=== PATIENT | male | born 1950 | race Caucasian/White ===

== ENCOUNTER 2020-04-01 09:01 | Outpatient (REF) | payer OTHER, SELFPAY | END 2020-04-01 09:02 | disposition home or self-care (01) | LOC: HO.LAB 09:01 | PROVIDERS: Visit Provider Internal Medicine | DX: Z20.828 Contact with and (suspected) exposure to other viral communicable diseases (principal) | CPT/HCPCS: C9803; U0003 ==

== ENCOUNTER 2020-06-12 09:47 | Emergency (ER) | payer OTHER, SELFPAY ==
--- NOTE | ~2020-06-12 | XR_ITS ---
EXAMINATION: XR CHEST CLINICAL INFORMATION: Chest pain COMPARISON: 01/29/2019 TECHNIQUE: 2 views of the chest were obtained. FINDINGS: Cardiac leads overlie the chest. The lungs are well expanded. Linear left basilar atelectasis. No consolidation, edema, or effusion. No pneumothorax. The cardiomediastinal silhouette is within normal limits of size, with a calcified aorta. Degenerative changes noted in the spine. XR/XR chest 2V IMPRESSION: Linear left basilar atelectasis. Otherwise clear lungs.
--- NOTE | ~2020-06-12 | CT_ITS ---
EXAMINATION: CT HEAD WITHOUT CONTRAST CLINICAL INFORMATION: Headache and dizziness COMPARISON: None TECHNIQUE: Contiguous axial imaging was performed from the skull base to vertex without intravenous administration of contrast. This CT examination was performed using dose optimization techniques as appropriate, variously including the following: *Automated exposure control *Adjustment of mA and/or kV according to patient size (this includes techniques or standardized protocols for targeted exams where dose is matched to indication/reason for exam; i.e. extremities or head) *Use of iterative reconstruction technique DLP: 748 mGy-cm FINDINGS: No evidence of acute intracranial hemorrhage or extra-axial fluid collection. No evidence of acute territorial infarction. No evidence of mass lesion, mass effect or midline shift. The ventricles are symmetric in configuration and normal in size. The basal cisterns are patent. The calvarium is intact. Limited views of the paranasal sinuses demonstrate mild mucoperiosteal thickening and small filling defect within the right maxillary sinus. Mastoid air cells are well aerated and middle ear cavities are clear. Views of the orbits are unremarkable. CT/CT head/brain wo con IMPRESSION: No acute intracranial pathology.
[2020-06-12 11:43] VITALS: BP 128/69; PULSE 74; RESP 18; TEMP 36.7; O2SAT 97; BMI 32.3
[2020-06-12 11:56] LABS: MANUAL DIFF FLAG NO
[2020-06-12 12:02] LABS: Basophils Absolute Auto 0.1 X10*3/uL (0.0-0.2); Basophils Percent Auto 0.4 % (0-2); Eosinophils Absolute Auto 0.2 X10*3/uL (0.0-0.4); Eosinophils Percent Auto 1.3 % (0-4); Hematocrit 40.5 % (42-52); Imm Gran Abs Auto 0.07 X10*3/uL (0.00-0.03); Imm Gran Pct Auto 0.6 % (0.0-0.4); Lymphocytes Absolute Auto 1.8 X10*3/uL (1.2-4.9); Mean Corpuscular HGB Conc 34.6 g/dl (31.0-36.0); Mean Corpuscular Hemoglobin 34.1 pg (27.0-33.0); Mean Corpuscular Volume 98.5 fL (80-98); Mean Platelet Volume 10.1 fL (9.4-12.4); Monocytes Absolute Auto 0.7 X10*3/uL (0.1-1.2); Neutrophils Absolute Auto 9.4 X10*3/uL (2.0-8.3); Neutrophils Percent Auto 76.7 % (45-73); Platelet Count 209 X10*3/uL (160-400); Red Blood Count 4.11 X10*6/uL (4.60-5.80); Red Cell Distribution Width 11.8 % (11.0-16.0); White Blood Count 12.2 X10*3/uL (4.8-10.8)
[2020-06-12 12:30] LABS: Anion Gap 14 (12-20); Blood Urea Nitrogen 21 mg/dL (9-16); Calcium 9.4 mg/dL (8.4-10.2); Carbon Dioxide 28 mmol/L (22-29); Chloride 100 mmol/L (96-108); Creatinine Clr Calc Pharmacy 70.3; Estimated Glomerular Filt Rate > 60; Glucose Random 108 mg/dL (60-115); Potassium 4.4 mmol/L (3.3-5.1); Sodium 138 mmol/L (135-145)
[2020-06-12 14:35] VITALS: BP 118/60; PULSE 76; RESP 18; TEMP 36.9; O2SAT 95
--- NOTE | 2020-06-12 14:54 | ECG_ITS ---
Test Reason : HEADACHE Blood Pressure : / mmHG Vent. Rate : 070 BPM Atrial Rate : 070 BPM P-R Int : 168 ms QRS Dur : 100 ms QT Int : 410 ms P-R-T Axes : 038 -15 038 degrees QTc Int : 442 ms Normal sinus rhythm Normal ECG When compared with ECG of 29-JAN-2019 14:28, No significant change was found Referred By: Maureen Puga Electronically Signed By:ELIZABETH BECKFORD MD
[2020-06-12] MEDS: Meclizine HCl 25 MG TABLET PO (15:02)
[2020-06-12] MEDS: Acetaminophen 325 MG TABLET 650 MG PO (15:02)
--- NOTE | 2020-06-12 15:10 | ED_ITS ---
HPI - Headache General Chief Complaint: Headache Stated Complaint: WEAKNESS Time Seen by Provider: 06/12/20 14:31 Source: patient Mode of arrival: ambulatory History of Present Illness HPI Narrative: 69-year-old male with a past medical history of arthritis, HTN, presenting to the ED complaining head pressure & dizziness described as feeling lightheaded/off balance since Tuesday. Admits symptoms have been constant since onset. Denies headache being maximal on onset. Also reports chest pain since last night and chronic SOB. Denies fever, visual change/loss, nausea/vomiting, abdominal pain, numbness/tingling, weakness, head trauma. Admits to similar symptoms in the past however resolved spontaneously MD elicited complaint: headache Related Data Previous Rx's Medication Instructions Recorded [id number] 1 cap PO Q4-6H PRN #14 cap 06/12/20 [Fioricet] meclizine 25 mg PO TID PRN #14 tab 06/12/20 Allergies Allergy/AdvReac Type Severity Reaction Status Date / Time No Known Allergies Allergy Unverified 12/20/19 17:41 [No Known Allergies*] Review of Systems Review of Systems: Constitutional: No Fever, No Chills, No Fatigue, No Malaise Eyes: No Eye Pain, No Vision Changes Cardiovascular: + Chest Pain, +Chronic SOB, No Dyspnea on Exertion, No Palpitations Respiratory: No Cough, No Dyspnea Gastrointestinal: No Nausea, No Vomiting, No Diarrhea, No Constipation, No Abdominal pain Musculoskeletal: No joint pain, No Myalgias, No Joint Swelling Skin: No Skin Lesions, No rash Neuro: No Weakness, No Numbness, No Paresthesias, No Loss of Consciousness, +lightheaded, + Dizziness, + Headache Yes all other systems are reviewed and are negative Neurologic: Denies Abnormal speech present [facility] Past Medical History Attestation statement: The following information was validated with the patient. Medical History (Updated 06/12/20 @ 19:19 by YULIYA Kerr) Arthritis FH: total knee replacement HTN (hypertension) Social History Social History Alcohol intake: current Alcohol intake frequency: a few times a week Smoking Status: Never smoker Use of substances other than those prescribed or required for medical reasons: No Advance Directives: Yes Advance Directives Information Provided: Yes Advance Directives on File: No Physical Exam Vital Signs: Vital Signs: Last Vital Signs Temp 98.6 F 03/11/21 18:22 Pulse 64 06/12/20 18:22 Resp 18 06/12/20 18:22 BP 122/62 06/12/20 18:22 Pulse Ox 94 06/12/20 18:22 Body Mass Index 32.3 Const: General: cooperative, healthy appearing, comfortable, no acute distress, well developed and alert Orientation/consciousness: patient oriented x3 Limitations: no limitations HENMT: Head: Yes normal to inspection and Yes atraumatic Ears: hearing grossly normal bilaterally General nose exam: Normal external nose present Face and sinus: Yes normal facial exam Mouth: Normal oral and palatal mucosa present Eyes: General: appearance normal, both eyes and all related structures Periorbital: periorbital findings normal Pupils: Equal, round and reactive pupils present EOM: EOMs intact bilaterally Direct Ophthalmoscopy: no photophobia Neck: Neck: Yes normal visual inspection and Yes no meningeal signs Resp: Effort & Inspection: normal respiratory effort Auscultation: clear to auscultation bilaterally, no rales, no rhonchi and no wheezes Cardio: Rate: regular rate Heart sounds: S1 normal heart sound present and S2 normal heart sound present GI: Inspection: Yes normal to inspection Palpation (GI): Soft to palpation, nontender, no guarding and not rigid Skin: Rashes: no rashes Wounds: no wounds Neuro: General: patient oriented x3, gait normal, tone normal, moves all extremities, no meningeal signs, no focal motor deficits and CN's II-XI intact bilaterally Cranial nerves: Yes Equal, round and reactive pupils present Cognition (Neuro): normal cognition Speech: No Abnormal speech present Gait exam (Neuro): Normal gait present and not ataxic Motor exam (neuro): 5/5 motor strength present throughout, Pronator motor function not present and no tremor noted Coordination: eesxye-zc-[id number] test normal and Romberg test negative Extrem: General: Yes normal to inspection and Yes no pedal edema NIH Stroke Scale Internal: Initial- Upon Arrival Level of Consciousness: Alert Level of Consciousness Questions: Answers both questions correctly Level of Consciousness Commands: Performs both tasks correctly Best Gaze: Normal Visual: No visual loss Facial Palsy: Normal Motor Arm (Right): No drift Motor Arm (Left): No drift Motor Leg (Right): No drift Motor Leg (Left): No drift Limb Ataxia: Absent Sensory: Normal Best Language: No aphasia Dysarthia: Normal Extinction and Inattention: No abnormality Score: 0 Course Course Course Narrative: -mild leukocytosis of 12.2, initial troponin 85.5. EKG without STEMI >> will obtain 3 hour repeat -1744--repeat troponin without 50% delta, [place] unlikely XR chest 2V IMPRESSION: Linear left basilar atelectasis. Otherwise clear lungs CT head/brain wo con IMPRESSION: No acute intracranial pathology -1849--on re-evaluation patient reports symptomatic improvement. Lab and imaging results discussed. Worrisome signs and symptoms/strict return precautions discussed. He verbalized understanding feel safe for discharge home MDM - Headache MDM Narrative Medical decision making narrative: 69-year-old male with a past medical history of arthritis, HTN, presenting to the ED complaining head pressure & dizziness described as feeling lightheaded/off balance since Tuesday. Also reports chest pain since last night and chronic SOB. On exam VSS, NAD, no focal neuro deficits, physical exam as above. Concern for complicated migraine headache. Low concern for posterior CVA/ICH or SAH Patient is out of the window for tPA and NIHSS =0, symptoms are not disabling Plan: EKG, Labs, Head CT, UA, IVF, Sx tx, Reassess Medical Records Attestation: I reviewed the patient's medical records. Lab Data Attestation: I reviewed the patient's lab results. Result diagrams: 06/12/20 11:52 06/12/20 11:52 Labs: Lab Results 06/12/20 06/12/20 06/12/20 Range/Units 11:52 11:52 11:52 WBC 12.2 H (4.8-10.8) X10*3/uL RBC 4.11 L (4.60-5.80) X10*6/uL Hgb 14.0 (14.0-18.0) g/dl Hct 40.5 L (42-52) % MCV 98.5 H (80-98) fL MCH 34.1 H (27.0-33.0) pg MCHC 34.6 (31.0-36.0) g/dl RDW 11.8 (11.0-16.0) % Plt Count 209 (160-400) X10*3/uL MPV 10.1 (9.4-12.4) fL Immature Gran % (Auto) 0.6 H (0.0-0.4) % Neut % (Auto) 76.7 H (45-73) % Lymph % (Auto) 15.0 L (20-40) % Stanton % (Auto) 6.0 (2-11) % Eos % (Auto) 1.3 (0-4) % Baso % (Auto) 0.4 (0-2) % Lymph # (Auto) 1.8 (1.2-4.9) X10*3/uL Stanton # (Auto) 0.7 (0.1-1.2) X10*3/uL Eos # (Auto) 0.2 (0.0-0.4) X10*3/uL Baso # (Auto) 0.1 (0.0-0.2) X10*3/uL Abs Immat Gran (auto) 0.07 H (0.00-0.03) X10*3/uL Absolute Neuts (auto) 9.4 H (2.0-8.3) X10*3/uL Absolute Nucleated RBC 0.000 (0.0-0.012) X10*3/uL Nucleated RBC % (auto) 0.0 (0.0-0.2) /100WBC Sodium 138 (135-145) mmol/L Potassium 4.4 (3.3-5.1) mmol/L Chloride 100 (96-108) mmol/L Carbon Dioxide 28 (22-29) mmol/L Anion Gap 14 (12-20) BUN 21 H (9-16) mg/dL Creatinine 1.06 (0.5-1.4) mg/dL Estim Creat Clear Calc 70.3 Estimated GFR > 60 Random Glucose 108 (60-115) mg/dL Calcium 9.4 (8.4-10.2) mg/dL Magnesium 2.0 (1.6-2.6) mg/dL Total Bilirubin 0.8 (0.0-1.0) mg/dL Direct Bilirubin 0.3 (0.0-0.5) mg/dL AST 114 H (5-37) U/L ALT 78 H (0-40) U/L Alkaline Phosphatase 102 (39-117) U/L Troponin I High Sens 85.5 H (<3.5-35.0) ng/L B-Natriuretic Peptide (<100) pg/mL Total Protein 8.0 (6.5-8.0) g/dL Albumin 4.6 (3.5-5.0) g/dL Urine Color Urine Appearance Urine pH (5.0-8.0) Ur Specific [place] (1.005-1.025) Urine Protein (NEG-TRACE) MG/DL Urine Glucose (UA) (NEG) MG/DL Urine Ketones (NEG) MG/DL Urine Blood (NEG) Urine Nitrite (NEG) Ur Leukocyte Esterase (NEG) 06/12/20 06/12/20 Range/Units 15:00 16:20 WBC (4.8-10.8) X10*3/uL RBC (4.60-5.80) X10*6/uL Hgb (14.0-18.0) g/dl Hct (42-52) % MCV (80-98) fL MCH (27.0-33.0) pg MCHC (31.0-36.0) g/dl RDW (11.0-16.0) % Plt Count (160-400) X10*3/uL MPV (9.4-12.4) fL Immature Gran % (Auto) (0.0-0.4) % Neut % (Auto) (45-73) % Lymph % (Auto) (20-40) % Stanton % (Auto) (2-11) % Eos % (Auto) (0-4) % Baso % (Auto) (0-2) % Lymph # (Auto) (1.2-4.9) X10*3/uL Stanton # (Auto) (0.1-1.2) X10*3/uL Eos # (Auto) (0.0-0.4) X10*3/uL Baso # (Auto) (0.0-0.2) X10*3/uL Abs Immat Gran (auto) (0.00-0.03) X10*3/uL Absolute Neuts (auto) (2.0-8.3) X10*3/uL Absolute Nucleated RBC (0.0-0.012) X10*3/uL Nucleated RBC % (auto) (0.0-0.2) /100WBC Sodium (135-145) mmol/L Potassium (3.3-5.1) mmol/L Chloride (96-108) mmol/L Carbon Dioxide (22-29) mmol/L Anion Gap (12-20) BUN (9-16) mg/dL Creatinine (0.5-1.4) mg/dL Estim Creat Clear Calc Estimated GFR Random Glucose (60-115) mg/dL Calcium (8.4-10.2) mg/dL Magnesium (1.6-2.6) mg/dL Total Bilirubin (0.0-1.0) mg/dL Direct Bilirubin (0.0-0.5) mg/dL AST (5-37) U/L ALT (0-40) U/L Alkaline Phosphatase (39-117) U/L Troponin I High Sens 85.9 H (<3.5-35.0) ng/L B-Natriuretic Peptide 25 (<100) pg/mL Total Protein (6.5-8.0) g/dL Albumin (3.5-5.0) g/dL Urine Color YELLOW Urine Appearance HAZY Urine pH 5.5 (5.0-8.0) Ur Specific [place] 1.020 (1.005-1.025) Urine Protein TRACE (NEG-TRACE) MG/DL Urine Glucose (UA) NEG (NEG) MG/DL Urine Ketones NEG (NEG) MG/DL Urine Blood NEG (NEG) Urine Nitrite NEG (NEG) Ur Leukocyte Esterase NEG (NEG) ECG Data Attestation: I personally reviewed and interpreted this ECG as follows: ECG interpretation date: 06/12/20 ECG interpretation time: 15:14 Interpretation: EKG normal sinus rhythm. If 70. QTC 442. No STEMI Discharge Plan Discharge Clinical Impression: Headache, Dizziness Patient Disposition: Home, Self-Care Instructions: Acute Headache (ED) Additional Instructions: Your blood work and imaging studies were reassuring today in the ED Meclizine helps with nausea and dizziness, take as needed Fioricet a headache medication, take as needed Be aware Fioricet has Tylenol mixed in, do not exceed 4 g in 1 day You need to follow-up with her doctor as well as neurology If her symptoms persist or worsen her headache becomes more constant or persistent develops nausea, vomiting, weakness, numbness, or tingling return to the ED Prescriptions: New meclizine 25 mg tablet 25 mg PO TID PRN (Reason: dizziness) Qty: 14 RF: 0 [id number]-[id number]-dohd [Fioricet] 50-300-40 mg capsule 1 cap PO Q4-6H PRN (Reason: headache) Qty: 14 RF: 0 Referrals: Curtis Muller MD [Primary Care Provider] - 2 days Bharti Lanier MD [Physician] - 1 week
[2020-06-12] MEDS: Metoclopramide HCl 10 MG/2 ML VIAL IVPUSH (15:11)
[2020-06-12] MEDS: 0.9 % Sodium Chloride 1,000 ML 999 ML IVCONT (15:14)
[2020-06-12 15:24] LABS: Glucose Urine UA NEG (NEG); Leukocyte Esterase Urine NEG (NEG); Nitrite Urine NEG (NEG); PH 5.5 (5.0-8.0); Urine Blood NEG (NEG); Urine Ketones NEG (NEG); Urine Protein TRACE MG/DL (NEG-TRACE)
[2020-06-12 15:25] LABS: Appearance Urine HAZY; Color Urine YELLOW
[2020-06-12 15:35] LABS: Alanine Aminotransferase 78 U/L (0-40); Albumin Level 4.6 g/dL (3.5-5.0); Alkaline Phosphatase 102 U/L (39-117); Aspartate Amino Transferase 114 U/L (5-37); Bilirubin Direct 0.3 mg/dL (0.0-0.5); Bilirubin Total 0.8 mg/dL (0.0-1.0)
[2020-06-12 15:55] LABS: Troponin-I High Sensitivity 85.5 ng/L (<3.5-35.0)
[2020-06-12 16:14] VITALS: BP 122/54; PULSE 72; RESP 18; TEMP 36.7; O2SAT 96
[2020-06-12 17:01] LABS: B Type Natriuretic Peptide 25 pg/mL (<100); Troponin-I High Sensitivity 85.9 ng/L (<3.5-35.0)
[2020-06-12 17:16] VITALS: BP 132/58; PULSE 65; RESP 16; TEMP 36.5; O2SAT 94
[2020-06-12 18:22] VITALS: BP 122/62; PULSE 64; RESP 18; TEMP 37; O2SAT 94
[2020-06-12] MEDS: diphenhydrAMINE HCL 25 MG TABLET 12.5 MG PO (18:24)
[2020-06-12] MEDS: Butalb/Acetamin/Caff 50/325/40 TABLET 1 TAB PO (18:24)
== END 2020-06-12 19:47 | disposition home or self-care (01) ==
PROVIDERS: Physician Assistant; Emergency Provider Emergency Medicine; PCP Internal Medicine
DX: R42 Dizziness and giddiness (principal); R51.9 Headache, unspecified; I10 Essential (primary) hypertension
CPT/HCPCS: 36415; 70450; 71046; 80048; 80076; 81003; 83735; 83880; 84484; 85025; 93005; 96361; 96374; 99284; J2765; Q0163

== ENCOUNTER 2024-08-03 08:29 | Inpatient (IN) | payer OTHER, SELFPAY ==
[2024-08-03] VITALS (10 sets, daily range): BP systolic 128–157; BP diastolic 52–67; PULSE 56–79; RESP 15–28; TEMP 36.1–36.8; O2SAT 84–96; BMI 34.9; BMI 34.6
--- NOTE | ~2024-08-03 | XR_ITS ---
EXAMINATION: XR CHEST CLINICAL INFORMATION: SOB COMPARISON: 06/12/2020, 01/19/2019 TECHNIQUE: 2 views of the chest were obtained. FINDINGS: Cardiac silhouette is prominent and mildly enlarged. Mediastinal and hilar contours appear normal. Mild haziness of the interstitium, with blunting of the costophrenic sulci suggesting small effusions. Findings suggest mild interstitial pulmonary edema. Chronic scarring in the left base. No focal pneumonia evident. There is no pneumothorax. There is no focal osseous or soft tissue abnormality. There are degenerative changes throughout the spine. XR/XR chest 2V IMPRESSION: Cardiomegaly, and findings suggesting mild interstitial pulmonary edema with tiny pleural effusions. Chronic scarring in the left base. Electronically signed by: Niall Smart MD 08/03/2024 09:41 AM EDT
--- NOTE | 2024-08-03 08:48 | ED_ITS ---
HPI - General Adult General Chief complaint: Dyspnea Stated complaint: Difficulty breathing Time Seen by Provider: 08/03/24 09:11 Source: patient and family (patient's daughter) Mode of arrival: ambulatory Limitations: no limitations History of Present Illness ED Provider: Candy Cody PA-C HPI narrative: Patient is a 73 year old assigned male at with a history of COPD, KAYLEEN on CPAP at night, arthritis, and HTN presenting to the emergency department today with increased shortness of breath. Patient states that over the last 2 weeks he has had increased shortness of breath. Patient states that he is unable to lay down at night because he is unable to breathe - even with wearing his CPAP mask. Patient states that his chest has felt heavy. Patient denies any dizziness, lightheadedness, abdominal pain, nausea, vomiting, fever, chills, blurry vision, double vision, loss of vision, back pain, night sweats, pain with urination, increased urinary frequency, increased urinary urgency, blood in his urine or stool, syncope or a near syncopal episode, recent trauma or falls, bowel incontinence, bladder incontinence, or any other complaints at this time. Onset (ago): week(s) (2) Relieving factors: none Exacerbating factors: none Associated symptoms: chest pain (heaviness) and shortness of breath Treatments prior to arrival: none Related Data Previous Rx's ?Medication ?Instructions ?Recorded gtbrjubjfx-gteebhsgsonpg-ulfmjlio 1 cap PO Q4-6H PRN headache #14 06/12/20 50 mg-300 mg-40 mg capsule caps (Fioricet) meclizine 25 mg tablet 25 mg PO TID PRN dizziness #14 tabs 06/12/20 Allergies Allergy/AdvReac Type Severity Reaction Status Date / Time No Known Allergies Allergy Unverified 08/03/24 08:49 [No Known Allergies*] Review of Systems 2 Constitutional: Constitutional: Reports no additional constitutional complaints, Denies chills, Denies fever(s) and Denies night sweats Eyes: Eyes: Reports no additional eye complaints, Denies blurry vision, Denies change in vision, Denies diplopia, Denies eye discharge, Denies loss of vision and Denies eye pain ENT: Denies dizziness Cardiovascular: Cardiovascular: Reports no additional cardiovascular complaints, Reports chest pain (heaviness), Denies lightheadedness, Denies Loss of Consciousness and Reports dyspnea Respiratory: Respiratory: Reports no additional respiratory complaints and Reports dyspnea Gastrointestinal: Gastrointestinal: Reports no additional gastrointestinal complaints, Denies abdominal pain, Denies melena, Denies hematochezia, Denies change in bowel habits and Denies change in stool character Genitourinary: Genitourinary: Reports no additional male genitourinary complaints, Denies hematuria, Denies oliguria, Denies difficulty urinating, Denies dysuria, Denies urinary frequency, Denies urinary hesitancy, Denies urinary incontinence and Denies urinary urgency Musculoskeletal: Musculoskeletal: Reports no additional musculoskeletal complaints, Denies numbness and Denies tingling Neurologic: Denies dizziness, Denies loss of vision, Denies numbness and Denies tingling Psychiatric: Psychiatric: Reports no additional psychiatric complaints Endocrine: Endocrine: Reports no additional endocrine complaints Hematologic/Lymphatic: Hematologic/Lymphatic: Reports no additional hematologic/lymphatic complaints Allergic/Immunologic: Allergic/Immunologic: Reports no additional allergic/immunologic complaints PMFSH Past Medical History Attestation statement: The following information was validated with the patient. (patient's daughter validated all information.) Source: old records reviewed, obtained from family (patient's daughter provided additional history and confirmed the history provided by the patient. ) and nursing notes reviewed Medical History FH: total knee replacement Arthritis HTN (hypertension) Social History Social History Alcohol intake: unknown Smoked in Last 30 Days: No Use of substances other than those prescribed or required for medical reasons: No Advance Directives: No Advance Directives Information Provided: Yes Do you have a plan to hurt others: No Plan Physical Exam ED Vital Signs: Vital Signs - 24 hr 08/03/24 08:49 08/03/24 09:46 08/03/24 09:46 Temperature 97 F 97 F Pulse Rate 77 56 Respiratory Rate 20 26 H Blood Pressure 128/52 L 128/52 L Pulse Oximetry 91 L 84 L 95 Oxygen Delivery Method Room Air Room Air Room Air Oxygen Flow Rate 2 08/03/24 09:52 08/03/24 10:19 Temperature 97.2 F Pulse Rate 64 Respiratory Rate 15 Blood Pressure 131/58 L 138/67 Pulse Oximetry 95 Oxygen Delivery Method Nasal Cannula Oxygen Flow Rate 2 BMI result Body Mass Index 34.9 Const General: cooperative, no acute distress, alert and awake Nutritional Appearance: well nourished Orientation/consciousness: patient oriented x3 HENMT Head: Yes normal to inspection and Yes atraumatic Ears: hearing grossly normal bilaterally and external ears normal General nose exam: Normal external nose present, no nasal discharge noted and no epistaxis Face and sinus: Yes normal facial exam, No abrasion and No laceration Mouth: Normal oral and palatal mucosa present, no drooling and no muffled voice Eyes General: appearance normal, both eyes and all related structures Periorbital: periorbital findings normal Eyelids: Yes eyelids normal Conjunctivae: conjunctivae normal Pupils: Equal, round and reactive pupils present EOM: EOMs intact bilaterally Neck Neck: Yes normal visual inspection, Yes full ROM and Yes no lymphadenopathy Resp Effort & Inspection: able to speak in complete sentences and labored Auscultation: crackles bilateral in the lower lung rueda Neuro General: patient oriented x3, moves all extremities and CN's II-XI intact bilaterally Cranial nerves: Yes Equal, round and reactive pupils present Cognition (Neuro): normal cognition Extrem Other: bilateral lower extremity edema 2+ General: Yes full ROM and Yes capillary refill normal Psych Appearance: grossly normal Mental Status: mental status grossly normal Affect: normal affect Attitude: cooperative Thought process: Normal thought process present Thought content: Normal thought content present Insight: Good insight present (Psych) Course Course Course Narrative: RME performed by Candy Cody PA-C. Patient is a 73 year old assigned male at presenting to the emergency department with shortness of breath. Patient states a week ago he began to feel like he was short of breath and it has been getting worse. Detailed physical exam and review of systems are deferred to the assistant teacher. EKG, labs, imaging, and swabs ordered. Patient placed back in the waiting room pending room availability and results. Medications Administered Discontinued Medications Generic Name Dose Route Start Last Admin Trade Name [employer] PRN Reason Stop Dose Admin Furosemide 20 mg 08/03/24 09:46 08/03/24 09:52 Furosemide 20 Mg/2 Ml Vial IVPUSH 08/03/24 09:47 20 mg ONCE ONE Administration Protocol Methylprednisolone Sodium Succinate 60 mg 08/03/24 09:45 08/03/24 09:52 Methylprednisolone Sod Succ 125 Mg/2 Ml Vial IVPUSH 08/03/24 09:46 60 mg ONCE ONE Administration Medical Decision Making Medical Decision Making [facility] Narrative: Patient is a 73 year old assigned male at with a history of COPD, KAYLEEN on CPAP at night, arthritis, and HTN presenting to the emergency department today with increased shortness of breath. Patient's physical exam was as noted in the physical exam portion of this note. Bilateral crackles in the lung bases and bilateral lower extremity 2+ pitting edema present. Patient's blood work showed an elevated BNP of 236 and an initial troponin of 164. Patient's EKG showed new atrial flutter. Patient's chest x-ray showed cardiomegaly with pulmonary edema and tiny pleural effusions. I consulted with Dr. Hawk, the hospital manager sales consultant, who recommended admission and diuresis. Patient's clinical presentation is most consistent with new CHF in exacerbation with comorbid COPD. Patient was given 20 mg of IV lasix and 60 mg of IV solu-medrol. Patient did have an episode where his oxygen saturation dipped to 86% - at that time he was sat up further and started on 2 liters of oxygen via nasal cannula. Patient's saturation improved to the mid 90s where it remained. I spoke with the hospitalist team who agreed to admission. I explained my physical exam findings as well as all test results to the patient and the patient's daughter. I answered all questions asked by the patient and the patient's daughter. Patient and the patient's daughter verbalized agreement and understanding with this treatment plan and admission. Differential Diagnosis Differential Diagnoses: The differential diagnosis associated with the presentation includes CHF CHF exacerbation COPD exacerbation NSTEMI STEMI Admission/Observation Consideration of admission/observation: Escalation of care including admission/observation considered Patient admitted as noted in the MDM Rationale portion of this note. Consult Healthcare Provider Management of the patient was discussed with: Hospitalist (agreed to admission as noted in the MDM Rationale portion of this note. ) and Chief Orthoptist (spoke with Dr. Hawk the hospital manager as noted in the MDM Rationale portion of this note. ) Lab Data [facility] Lab Attestation statement: I reviewed the patient's lab results. My interpretation of these results are in the MDM Rationale portion of this note. 08/03/24 09:17 08/03/24 09:17 Labs: Lab Results 08/03/24 08/03/24 08/03/24 Range/Units 09:17 09:18 09:22 WBC 8.5 (4.8-10.8) X10*3/uL RBC 3.91 L (4.60-5.80) X10*6/uL Hgb 12.6 L (14.0-18.0) g/dl Hct 38.9 L (42.0-52.0) % MCV 99.5 H (80.0-98.0) fL MCH 32.2 (27.0-33.0) pg MCHC 32.4 (31.0-36.0) g/dl RDW 12.6 (11.0-16.0) % Plt Count 143 L (160-400) X10*3/uL MPV 10.4 (9.4-12.4) fL Immature Gran % (Auto) 0.5 H (0.0-0.4) % Neut % (Auto) 75.3 H (45-73) % Lymph % (Auto) 14.3 L (20-40) % Ogle % (Auto) 7.3 (2-11) % Eos % (Auto) 1.8 (0-4) % Baso % (Auto) 0.8 (0-2) % Lymph # (Auto) 1.2 (1.2-4.9) X10*3/uL Ogle # (Auto) 0.6 (0.1-1.2) X10*3/uL Eos # (Auto) 0.2 (0.0-0.4) X10*3/uL Baso # (Auto) 0.1 (0.0-0.2) X10*3/uL Abs Immat Gran (auto) 0.04 H (0.00-0.03) X10*3/uL Absolute Neuts (auto) 6.4 (2.0-8.3) x10*3/uL Absolute Nucleated RBC 0.000 (0.0-0.012) X10*3/uL Nucleated RBC % (auto) 0.0 (0.0-0.2) /100WBC PT 14.6 H (10.9-12.4) SEC INR 1.3 H (0.9-1.1) VBG pH 7.37 (7.32-7.43) VBG pCO2 55 mmHg VBG pO2 77 mmHg VBG HCO3 32 H (22-26) mmol/L VBG O2 Saturation 94.0 % VBG Base Excess 5.6 mmol/L Sodium 140 (135-145) mmol/L Potassium 3.6 (3.3-5.1) mmol/L Chloride 103 (96-108) mmol/L Carbon Dioxide 28 (22-29) mmol/L Anion Gap 13 (12-20) BUN 18 H (9-16) mg/dL Creatinine 0.79 (0.5-1.4) mg/dL Estim Creat Clear Calc 92.7 Estimated GFR > 60 Random Glucose 136 H (60-115) mg/dL Calcium 9.3 (8.4-10.2) mg/dL Magnesium 2.3 (1.6-2.6) mg/dL Total Bilirubin 0.5 (0.0-1.0) mg/dL AST 40 H (5-37) U/L ALT 46 H (0-40) U/L Alkaline Phosphatase 63 (39-117) U/L Troponin I Hi Sens Base 164.0 H* (<3.5-35.0) ng/L B-Natriuretic Peptide 236 H (<100) pg/mL Total Protein 7.1 (6.5-8.0) g/dL Albumin 4.2 (3.5-5.0) g/dL Influenza Type A (PCR) NEGATIVE (Negative) Influenza Type B (PCR) NEGATIVE (Negative) RSV RNA Qual (PCR) NEGATIVE (Negative) SARS-CoV-2 RNA (RT-PCR) NEGATIVE (Negative) Independent Interpretation I performed an independent interpretation of an: EKG and Plain X-Ray Interpretation: My interpretation is in agreement with the radiologist's impression of this imaging study. L EXAMINATION: XR CHEST CLINICAL INFORMATION: SOB COMPARISON: 06/12/2020, 01/19/2019 TECHNIQUE: 2 views of the chest were obtained. FINDINGS: Cardiac silhouette is prominent and mildly enlarged. Mediastinal and hilar contours appear normal. Mild haziness of the interstitium, with blunting of the costophrenic sulci suggesting small effusions. Findings suggest mild interstitial pulmonary edema. Chronic scarring in the left base. No focal pneumonia evident. There is no pneumothorax. There is no focal osseous or soft tissue abnormality. There are degenerative changes throughout the spine. XR/XR chest 2V IMPRESSION: Cardiomegaly, and findings suggesting mild interstitial pulmonary edema with tiny pleural effusions. Chronic scarring in the left base. Electronically signed by: Niall Smart MD 08/03/2024 09:41 AM EDT RP Dictated By: Niall Smart MD Signed By: Electronically signed by Niall Smart MD 08/03/24 0941 I independently interpreted this EKG and am in agreement with the below findings: Vent. Rate: 59 BPM Atrial Rate: 258 BPM P-R Int: * ms QRS Dur: 92 ms QT Int: 418 ms P-R-T Axes: 270 -33 19 degrees QTcB Int: 413 ms Atrial flutter with variable A-V block Left axis deviation Inferior infarct, age undetermined When compared with ECG of 12-Jun-2020 15:14, Atrial flutter has replaced Sinus rhythm Inferior infarct is now Present DD/ 09 Radiology Impression Discussion of test interpretation with radiology: I have reviewed the radiologist's reading. Independent Historian Clinical information obtained from an independent historian. History obtained from or confirmed by: Other (patient's daughter provided additional history and confirmed the history provided by the patient. ) Chronic Conditions Patient?s care impacted by: Hypertension Critical Care Time Critical Care Time Critical Care Time: Yes Total Critical Care Time: 48 Attestation: I spent 48 minutes of Critical Care Time with this patient. This does not include time spent on separately reported billable procedures. Discharge Plan Discharge Clinical Impression: Congestive heart failure, COPD (chronic obstructive pulmonary disease), Elevated troponin, Hypoxia, Atrial flutter Patient Disposition: Admitted As Inpatient Prescriptions: No Action meclizine 25 mg tablet 25 mg PO TID PRN (Reason: dizziness) Qty: 14 0RF nalrrimwkd-zwoqqjvkjrvhc-ittv [Fioricet] 50-300-40 mg capsule 1 cap PO Q4-6H PRN (Reason: headache) Qty: 14 0RF Rx Instructions: do not exceed 6 caps per day Print Language: Japanese
--- NOTE | 2024-08-03 08:51 | ECG_ITS ---
Test Reason : SOB Blood Pressure : */* mmHG Vent. Rate : 59 BPM Atrial Rate : 258 BPM P-R Int : * ms QRS Dur : 92 ms QT Int : 418 ms P-R-T Axes : 270 -33 19 degrees QTcB Int : 413 ms Atrial flutter with variable A-V block Left axis deviation Inferior infarct , age undetermined Abnormal ECG When compared with ECG of 12-Jun-2020 15:14, Atrial flutter has replaced Sinus rhythm Inferior infarct is now Present Referred By: Candy Cody Electronically Signed By: Chang Hawk
[2024-08-03 09:23] LABS: MANUAL DIFF FLAG NO
[2024-08-03 09:25] LABS: Basophils Absolute Auto 0.1 X10*3/uL (0.0-0.2); Basophils Percent Auto 0.8 % (0-2); Eosinophils Absolute Auto 0.2 X10*3/uL (0.0-0.4); Eosinophils Percent Auto 1.8 % (0-4); Hematocrit 38.9 % (42.0-52.0); Hemoglobin 12.6 g/dl (14.0-18.0); Imm Gran Abs Auto 0.04 X10*3/uL (0.00-0.03); Imm Gran Pct Auto 0.5 % (0.0-0.4); Lymphocytes Absolute Auto 1.2 X10*3/uL (1.2-4.9); Lymphocytes Percent Auto 14.3 % (20-40); Mean Corpuscular HGB Conc 32.4 g/dl (31.0-36.0); Mean Corpuscular Hemoglobin 32.2 pg (27.0-33.0); Mean Corpuscular Volume 99.5 fL (80.0-98.0); Mean Platelet Volume 10.4 fL (9.4-12.4); Monocytes Absolute Auto 0.6 X10*3/uL (0.1-1.2); Monocytes Percent Auto 7.3 % (2-11); Neutrophils Absolute Auto 6.4 x10*3/uL (2.0-8.3); Neutrophils Percent Auto 75.3 % (45-73); Platelet Count 143 X10*3/uL (160-400); Red Blood Count 3.91 X10*6/uL (4.60-5.80); Red Cell Distribution Width 12.6 % (11.0-16.0); White Blood Count 8.5 X10*3/uL (4.8-10.8)
[2024-08-03 09:26] LABS: VBG Base Excess 5.6 mmol/L; VBG HCO3 32 mmol/L (22-26); VBG pCO2 55 mmHg; VBG pH 7.37 (7.32-7.43); VBG pO2 77 mmHg
[2024-08-03 09:27] LABS: Venous Blood Gas Refer to POC result
[2024-08-03 09:34] LABS: INTERNATIONAL NORM RATIO 1.3 (0.9-1.1); Prothrombin Time 14.6 SEC (10.9-12.4)
[2024-08-03 09:47] LABS: Alanine Aminotransferase 46 U/L (0-40); Albumin Level 4.2 g/dL (3.5-5.0); Alkaline Phosphatase 63 U/L (39-117); Anion Gap 13 (12-20); Aspartate Amino Transferase 40 U/L (5-37); Bilirubin Total 0.5 mg/dL (0.0-1.0); Blood Urea Nitrogen 18 mg/dL (9-16); Calcium 9.3 mg/dL (8.4-10.2); Carbon Dioxide 28 mmol/L (22-29); Chloride 103 mmol/L (96-108); Creatinine Clr Calc Pharmacy 92.7; Estimated Glomerular Filt Rate > 60; Glucose Random 136 mg/dL (60-115); Magnesium 2.3 mg/dL (1.6-2.6); Potassium 3.6 mmol/L (3.3-5.1); Sodium 140 mmol/L (135-145); Total Protein 7.1 g/dL (6.5-8.0)
--- NOTE | 2024-08-03 09:47 | PC.NURSE ---
Pt dyspneic and tachypneic with minimal activity; + accessory muscle use with respirations; 2+pitting LE edema noted; pt doesn't know if he's had irreg. HR before; pt 83% on RA, placed on 2 ltr NC now 95%; provider made aware; will moniotr/tx per orders
[2024-08-03 09:52] LABS: B Type Natriuretic Peptide 236 pg/mL (<100)
[2024-08-03] MEDS: methylPREDNISolone Sod Succ 125 MG/2 ML VIAL 60 MG IVPUSH (09:52)
[2024-08-03] MEDS: Furosemide 20 MG/2 ML VIAL IVPUSH (09:52)
--- NOTE | 2024-08-03 09:56 | PC.RT ---
RT assessed pt w/ PA at bedside. PT has crackles and rales bilateral, PA states CHF. No bronchodilators given at this time. Bedtime CPAP order placed per PA request.
[2024-08-03 10:06] LABS: Influenza A PCR NEGATIVE (Negative); Influenza B PCR NEGATIVE (Negative); Resp Syncy Virus RNA Qual PCR NEGATIVE (Negative); SARS COV2 PCR INHOUSE NEGATIVE (Negative)
--- OUTSIDE RECORDS SUMMARY | 2024-08-03 10:25 | XMS_ITS | Encounter Summary ---
Author Organization [facility] Address [address] [place] [address] Care Team Providers Care Manager Communication Name Role Phone Curtis Muller MD Primary Care Provider [phone] Encounter Details Date Type Department Care Team (Late st Contact Info) Description 07/26/2024 Telephone Pulmonol - [facility] [address] [place] [id number] Priscilla Dumont, TRESA [address] [place] [address] Social History Tobacco Use Types Packs/Day Years Used Date Smoking Tobacco: Never Smokeless Tobacco: Never Alcohol Use Standard Drinks/Week Comments Yes 0 (1 standard drink = 0.6 oz pur e alcohol) Sex and Gender Information Value Date Recorded Sex Assigned at Not on file Legal Sex Male 4:34 AM EST Gender Identity Not on file Sexual Orientation Not on file documented as of this encounter Progress Notes * Vivian Gonsales - 07/26/2024 10:56 AM EDT Patient called us back to let us know he will be seeing a different pulmo provider at [facility] . Hewill be seeing Dr. Schmid documented in this encounter Plan of Treatment Upcoming Encounters Date Type Department Care Team (Late st Contact Info) Description 08/20/2024 1:30 PM EDT Evaluation Outpatient Rehabilitation - [address] [place] [address] Srinath Jose, AMADA 08/21/2024 1:00 PM EDT Procedure visit Orthopedic Surgery [facility] [address] [phone] Cathy Sin MD [address] [address] 08/28/2024 1:30 PM EDT Procedure visit Orthopedic Surgery [facility] [address] [phone] Cathy Sin MD [address] [address] 10/23/2024 4:30 PM EDT Office Visit Adult [address] [phone] Curtis Muller MD [address] [place] [phone] documented as of this encounter Visit Diagnoses Not on filedocumented in this encounter Additional Health Concerns Assessment Noted Time PHQ-9 Depression Total Score: 13 025 6:38 PM EST documented as of this encounter Care Teams Manager Communication Relationship Specialty Start Date End Date Curtis Muller MD [address] [place] [id number] PCP - General Internal Medicine 08/14/14 documented as of this encounter
--- OUTSIDE RECORDS SUMMARY | 2024-08-03 10:25 | XMS_ITS | Clinical Summary ---
Author Organization 175 [facility] Address [address] [place] [address] Phone Care Team Providers Care Veterinary Surgery Technologist Name Role Phone Curtis Muller MD Primary Care Provider Allergies No known active allergies Medications albuterol HFA (PROAIR HFA ; PROVENTIL HFA ; VENTOLIN HFA) 90 mcg/actuation inhaler Inhale 2 puffs by mouth. 04/12/19 24 Active chlorhexidine (PERIDEX) 0.12 % solution 07/18/19 21 Active cyclobenzaprine (FLEXERIL) 5 mg tablet Take 1 tablet (5 mg total) by mouth. 12/30/19 23 Active diclofenac (VOLTAREN) 1 % topical gel Apply 1 applicator topically. 11/05/19 23 Active fluticasone propion-salmete roL (Advair HFA) 115-21 mcg/actuation inhaler TAKE 2 PUFFS TWICE PER DAY. RINSE MOUTH AFTER EACH USE TO AVOID FUNGAL INFECTION 02/29/20 23 Active hydrocortisone (ANUSOL-HC) 2.5 % rectal cream Apply 1 Dose topically. 02/22/20 23 Active tamsulosin (FLOMAX) 0.4 mg 24 hr capsule TAKE 1 CAPSULE BY MOUTH DAILY TAKE 30 MINUTES AFTER SAME MEAL EVERY DAY 02/11/20 23 Active acetaminophen (TYLENOL) 500 mg tablet Take 1 tablet (500 mg total) by mouth. 09/23/19 23 Active miscellaneous medical supply misc Inhale. 07/25/19 23 Active Advair HFA 230-21 mcg/actuation inhalerIndicati ons:Obstructive sleep apnea (adult) (pediatric),Car diac murmur, unspecified INHALE 2 PUFFS INTO THE LUNGS 2 TIMES DAILY. THIS MEDICATION HAS INHALER STEROID: RINSE MOUTH WITH WATER AND EXPECTORATE AFTER EACH DOSE TO PREVENT ORAL/ESOPHAGEA L CANDIDIASIS OR FUNGAL INFECTION. 12 each 2 03/10/20 24 Active predniSONE (DELTASONE) 20 mg tablet Take 60 mg PO daily for 3 days, then take 40 mg PO daily for 3 days, then 20 mg PO daily for 3 days, then stop 18 tablet 04/10/19 25 Active fluticasone propionate (FLONASE) 50 mcg/actuation nasal sprayIndication s:Obstructive sleep apnea (adult) (pediatric),Oth er forms of dyspnea SPRAY 2 SPRAYS BY NASAL ROUTE DAILY. 48 mL 1 04/11/19 25 Active diclofenac (VOLTAREN) 75 mg EC tablet TAKE 1 TABLET BY MOUTH TWICE A DAY 180 tablet 1 06/21/19 25 Active atorvastatin (LIPITOR) 80 mg tablet TAKE 1 TABLET BY MOUTH EVERYDAY AT BEDTIME 90 tablet 1 07/04/19 25 Active lisinopril (PRINIVIL,ZESTR IL) 40 mg tabletIndicatio ns:Essential (primary) hypertension TAKE 1 TABLET BY MOUTH EVERY DAY 90 tablet 1 07/04/19 25 Active chlorthalidone (HYGROTON) 25 mg tabletIndicatio ns:Essential (primary) hypertension TAKE 1 TABLET BY MOUTH EVERY DAY 90 tablet 1 07/04/19 25 Active allopurinoL (ZYLOPRIM) 100 mg tabletIndicatio ns:Idiopathic chronic gout, unspecified site, without tophus (tophi) TAKE 1 TABLET BY MOUTH EVERY DAY 90 tablet 1 07/04/19 25 Active cyanocobalamin (VITAMIN B-12) 1,000 mcg tablet TAKE 2 TABLETS BY MOUTH EVERY DAY 180 tablet 1 07/06/19 25 Active amLODIPine (NORVASC) 10 mg tabletIndicatio ns:Essential (primary) hypertension Take 1 tablet (10 mg total) by mouth 1 (one) time each day. 90 tablet 07/10/19 25 Active loratadine (Claritin) 10 mg tabletIndicatio ns:Non-seasonal allergic rhinitis, unspecified trigger Take 1 tablet (10 mg total) by mouth 1 (one) time each day. 30 each 2 07/28/19 25 025 Active cyanocobalamin (VITAMIN B-12) 1,000 mcg tablet Take 2 tablets (2,000 mcg total) by mouth 1 (one) time each day. 05/09/19 24 025 Discontinued amLODIPine (NORVASC) 10 mg tabletIndicatio ns:Essential (primary) hypertension TAKE 1 TABLET BY MOUTH EVERY DAY 90 tablet 04/11/19 25 025 Discontinued Active Problems Problem Noted Date Diagnosed Date Absence of bladder continence 04/12/2024 Benign prostatic hyperplasia with urinary freque ncy 04/12/2024 Essential hypertension, benign 06/09/2023 Rectal bleeding 06/09/2023 Blood in stool 06/09/2023 DJD (degenerative joint disease) of knee 024 Reactive airway disease 06/09/2023 Hepatic steatosis 02/19/2022 Overview (06/09/2023): July 2021 Abdomen US: Progressive hepatomegaly. Echogenic hepatic parenchyma is likely related to steatosis as seen on CT. 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 Obstructive sleep apnea 11/11/2015 Overview (06/09/2023): 02/03/2016 to 03/09/2016. CPAP@ 6-14/Average 13.9/Max 14.5 (unsure of why this high given pressures). 97% compliant with using the machine for >4 hours/day. Average use is 5.5 hours a night with AHI 11.2. Intolerant of the CPAP - ordered new treatment study 03/15/2016. 04/01/2016: CPAP pressure lowered to 6-11. [facility] polysomnogram 01/06/2021. Weight 190; BMI 30. Effectiveness of Pap appears highly dependent on sleep position. Relatively modest CPAP settings 8-12 appear effective and lateral positions were at CPAP pressures and BiPAP pressures ineffective with supine sleep. Patent 2 central apneas were seen at the higher end of tested BiPAP settings. Recommendations for CPAP 8-12. 03/13/2016 to 05/11/2016. CPAP@ 6-14/Average 13.9/Max 13.9. 87% compliant with using the machine for >4 hours/day. Average use is 6.5 hours a night with AHI 8.0. 08/13/2017 to 09/11/2017. CPAP@ 6-16/Average 15.7/Max 15.9. 77% compliant with using the machine for >4 hours/day. Average use is 4.8 hours a night with AHI 15.8. Erectile dysfunction 09/29/2014 Depression 09/29/2014 Insomnia 09/29/2014 Primary gout 09/06/2014 Hypercholesteremia 09/06/2014 Encounters Date Type Department Care Team Description 07/26/2024 Telephone Pulmonolgy [facility] [address] [facility] [address] [place] [phone] Priscilla Dumont NP 07/26[facility] [address] [place] [phone] Priscilla Dumont NP Med Refill 07/19/2024 1:30 PM EDT Consult Orthopedic Surgery [facility] [address] [facility] [address] [place] [phone] Cathy Sin MD Greater trochanteric pain syndrome of both lower extremities (Primary Dx); Primary osteoarthritis of both hips 05/31/2024 Telephone Adult Medicine [address] [phone] Curtis Muller MD Medication Visit; New Med Request from Last 3 Months Immunizations Name Administration Dates Next Due Influenza trivalent, 0.5mL ( Fluzone High-dose) 65yo and older 02/10/2022,06/25/2021 Pneumococcal conjugate 13 va lent (Prevnar 13, PCV13) 2mo and older 04/17/2018 Pneumococcal polysaccharide 23 valent (Pneumovax 23) 2yo and older 04/08/2020 Tdap Tetanus diptheria acell ular pertussis (Boostrix; Adacel) 7yo and older 06/20/2015 Surgical History Surgery Date Site/Laterality Comments TOTAL KNEE ARTHROPLASTY Bilateral PROCEDURE: HISTORICAL TOTAL KNEE REPLACE; COMMENT: 2017- left 2018- right COLONOSCOPY PROCEDURE: HISTORICAL COLONOSCOPY Medical History Medical History Date Comments Essential hypertension, benign D X:Essential hypertension, benign Osteoarthrosis, unspecified whether generalized or localized, lower leg DX:Osteoarthrosis, unspecified whether generalized or localized, lower leg Primary gout 09/06/2014 DX:Primary gout Hypercholesteremia 09/06/2014 DX:Hyperchole steremia Elevated PSA 09/29/2014 DX:Elevated PSA; COMMENT: Benign prostate biopsies 11/15 Erectile dysfunction 09/29/2014 DX:Erectile dysfunction Depression 09/29/2014 DX:Depression Insomnia 09/29/2014 DX:Insomnia 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 Rectal bleeding DX:Rectal bleedi ng Blood in stool DX:Blood in stoo l Reactive airway disease DX:React jani airway disease Rectal bleeding DX:Rectal bleedi ng Family History Medical History Relation Name Comments Diabetes Brother Heart attack Father diabetes Hypertension Mother Arthritis Paternal Grandmother Relation Name Status Comments Brother Father Mother Paternal Grandmother Social History Tobacco Use Types Packs/Day Years Used Date Smoking Tobacco: Never Smokeless Tobacco: Never Tobacco Cessation:Counseling Given: Not Answered Alcohol Use Standard Drinks/Week Comments Yes 0 (1 standard drink = 0.6 oz pur e alcohol) Sex and Gender Information Value Date Recorded Sex Assigned at Not on file Legal Sex Male 4:34 AM EST Gender Identity Not on file Sexual Orientation Not on file Obstetrics History Last Filed Vital Signs Vital Sign Reading Time Taken Comments Blood Pressure 124/60 04/12/2024 3:43 PM EST Pulse 80 04/12/2024 3:43 PM EST Temperature 36.9 ??C (98.4 ??F) 04/12/2024 3 :43 PM EST Respiratory Rate 16 05/01/2024 2:43 PM EST Oxygen Saturation 95% 04/12/2024 3:4 3 PM EST @ rest on R.A. Inhaled Oxygen Concentration - - Weight 97.1 kg (214 lb) 07/19/2024 1:22 PM EDT Height 167.6 cm (5' 6 ) 07/19/2024 1:22 PM EDT Body Mass Index 34.54 07/19/2024 1:22 PM EDT Plan of Treatment Upcoming Encounters Date Type Department Care Team (Late st Contact Info) Description 08/20/2024 1:30 PM EDT Evaluation Outpatient Rehabilitation [address] [phone] Srinath Jose, PT 08/21/2024 1:00 PM EDT Procedure visit Orthopedic Surgery [facility] [address] [phone] Cathy Sin MD [address] [place] [phone] 08/28/2024 1:30 PM EDT Procedure visit Orthopedic [facility] [address] [phone] Cathy Sin MD [address] [place] [phone] 10/23/2024 4:30 PM EDT Office Visit Adult Medicine [address] [phone] Curtis Muller MD [address] [place] [phone] Health Maintenance Due Date Last Done Comments Zoster Vaccines (1 of 2) 08/11/1970 RSV Immunization Adult Patients (1 - Risk 60-74 years 1-dose series) 2011 COVID-19 Vaccine (2 - Pfizer risk series) 08/06/2021 07/16/2021 Medicare Annual Wellness Visit 03/13/2022 Social Influencers of Health Screening 03/13/2022 Falls Risk Assessment 02/19/2023 02/19/2022 Depression Screening 04/11/2025 04/11/2024, 10/07/19 23 Hypertension/CHF/CAD Annual BMP Blood Test 04/12/2025 04/12/2024, 10/10/2023 Cholesterol Screening (Lipid Panel) 04/12/2029 04/12/2024, 10/10/2023, 02/19/2022 Colorectal Cancer Screening: Colonoscopy 12/03/2031 12/02/2021 DTaP,Tdap,and Td Vaccines (3 - Td or Tdap) 07/02/2033 07/03/2023, 06/20/2015 Pneumococcal Vaccine: 50+ Years Completed 04/08/2020, 04/17/2018 Hepatitis C Screening Addressed 02/19/2022 Overri dden with the intention of not completing the topic Influenza Vaccine Completed 01/18/2024, , 02/10/2022, Additional history exists HIB Vaccines Aged Out No longer eligi ble based on patient's age to complete this topic HPV Vaccines Aged Out No longer eligi ble based on patient's age to complete this topic Hepatitis A Vaccines Aged Out No long er eligible based on patient's age to complete this topic Hepatitis B Vaccines Aged Out No long er eligible based on patient's age to complete this topic IPV Vaccines Aged Out No longer eligi ble based on patient's age to complete this topic MMR Vaccines Aged Out No longer eligi ble based on patient's age to complete this topic Meningococcal ACWY Vaccine Aged Out N o longer eligible based on patient's age to complete this topic Meningococcal B Vaccine Aged Out No l onger eligible based on patient's age to complete this topic RSV Immunization Patients Under 20 months Aged Out No longer eligible based on patient's age to complete this topic Varicella Vaccines Aged Out No longer eligible based on patient's age to complete this topic Procedures Procedure Name Priority Date/Time Associated Diagnosis Comments COMPREHENSIVE METABOLIC PANEL Routine 04/12/2024 4:35 PM EST Encounter for long-term (current) use of medications Essential hypertension, benign LIPID PANEL WITH REFLEX TO DIRECT LDL Routine 04/12/2024 4:35 PM EST Hypercholesteremia from Last 3 Months or Most Recently Relevant to Health Maintenance Results * (ABNORMAL) Lipid panel with reflex to direct LDL (04/12/2024 4:35 PM EST) Cholesterol 172 0 - 200 mg/dL LAB CHEMISTRY METHOD 04/12/2024 6:59 PM [facility] Triglycerides 147 0 - 150 mg/dL LAB CHEMISTRY METHOD 04/12/2024 6:59 PM [facility] HDL 42 >=40 mg/dL LAB CHEMISTRY METHOD 04/12/2024 6:59 PM [facility] LDL Calculated 101(H) 0 - 100 mg/dL LAB CHEMISTRY METHOD 04/12/2024 6:59 PM [facility] VLDL Cholesterol Mino 29.4 mg/dL LAB CHEMISTRY METHOD 04/12/2024 6:59 PM [facility] Non HDL Chol. (LDL+VLDL) 130 <145 mg/dL LAB CHEMISTRY METHOD 04/12/2024 6:59 PM [facility] Chol/HDL Ratio 4.1 0.0 - 4.4 LAB CHEMISTRY METHOD 04/12/2024 6:59 PM [facility] Blood Venous blood specimen / Unknown Venipuncture / Unknown 04/12/2024 4:35 PM EST 04/12/2024 4:35 PM EST us Curtis Muller MD LAB BLOOD ORDERABLES Final Resu lt [facility] [address] [place] [address], * (ABNORMAL) Comprehensive metabolic panel (04/12/2024 4:35 PM EST) Sodium 136 133 - 145 mmol/L LAB CHEMISTRY METHOD 04/12/2024 6:59 PM [facility] Potassium 4.2 3.5 - 5.5 mmol/L LAB CHEMISTRY METHOD 04/12/2024 6:59 PM [facility] Chloride 98 96 - 110 mmol/L LAB CHEMISTRY METHOD 04/12/2024 6:59 PM [facility] CO2 31 21 - 32 mmol/L LAB CHEMISTRY METHOD 04/12/2024 6:59 PM [facility] Anion Gap 7 3 - 11 LAB CHEMISTRY METHOD 04/12/2024 6:59 PM [facility] Glucose 118(H) 70 - 100 mg/dL LAB CHEMISTRY METHOD 04/12/2024 6:59 PM [facility] BUN 23 5 - 25 mg/dL LAB CHEMISTRY METHOD 04/12/2024 6:59 PM [facility] Creatinine 1.09 0.70 - 1.30 mg/dL LAB CHEMISTRY METHOD 04/12/2024 6:59 PM [facility] eGFR 72 >=60 mL/min/1. 73m2 LAB CHEMISTRY METHOD 04/12/2024 6:59 PM [facility] Comment:Calculation based on the??Chronic Kidney Disease Epidemiology Collaboration (CKD-EPI) equation refit??without adjustment for race. BUN/Creatinine Ratio 21.1 LAB CHEMISTRY METHOD 04/12/2024 6:59 PM [facility] Calcium 9.5 8.5 - 10.5 mg/dL LAB CHEMISTRY METHOD 04/12/2024 6:59 PM [facility] AST (SGOT) 50(H) 10 - 42 unit/L LAB CHEMISTRY METHOD 04/12/2024 6:59 PM [facility] ALT (SGPT) 97(H) 10 - 60 unit/L LAB CHEMISTRY METHOD 04/12/2024 6:59 PM [facility] Alkaline Phosphatase 71 42 - 121 unit/L LAB CHEMISTRY METHOD 04/12/2024 6:59 PM [facility] Total Protein 7.9 6.0 - 8.0 g/dL LAB CHEMISTRY METHOD 04/12/2024 6:59 PM [facility] Albumin 4.3 3.2 - 5.0 g/dL LAB CHEMISTRY METHOD 04/12/2024 6:59 PM EST [facility] Total Bilirubin 0.5 0.0 - 1.4 mg/dL LAB CHEMISTRY METHOD 04/12/2024 6:59 PM EST [facility] Blood Venous blood specimen / Unknown Venipuncture / Unknown 04/12/2024 4:35 PM EST 04/12/2024 4:35 PM EST us Curtis Muller MD LAB BLOOD ORDERABLES Final Resu lt [facility] [address] [place] [address], from Last 3 Months or Most Recently Relevant to Health Maintenance Insurance [employer] Care Teams Veterinary Surgery Technologist Relationship Specialty Start Date End Date Curtis Muller MD [address] [place] [phone] PCP - General Internal Medicine 08/14/14
--- NOTE | 2024-08-03 10:51 | PM.IMHP ---
History of Present Illness Date of Service: 08/03/24 Attending physician on admission: Edmundo Henderson Chief Complaint: SOB Pt is a 73-year-old male with a PMH significant for?HTN, HLD, COPD, arthritis, BPH, and KAYLEEN occasionally compliant with CPAP who presents to the ED with?worsening SOB, PEREYRA, and leg swelling. Pt complains of chronic SOB for the past 10 years secondary to COPD, though has been worsening the past couple of months, significantly so the past 1-2 weeks. SOB occurs at rest though worsened with exertion, can no longer walk up stairs or lie flat on his back at night. Pt has also noticed significant leg swelling for the past 10-14 days. Pt denies any significant cardiac hx and regularly follows with PCP. Denies chest pain/pressure, palpitations. No fever, chills. Denies nausea, vomiting, abdominal pain. In the ED pt was tachypneic up to 26, with soft diastolic BP as low as 128/52, and hypoxic at 84% on RA. Labs were significant for BNP 236 and initial troponin 164.0. Mild transaminitis of AST 40 and ALT 46, similar to prior. No leukocytosis. Stable microcytic anemia of 12.6/38.9 with MCV 99.5. VBG with pH 7.37, pCO2 55, and bicarb 32. No significant electrolyte abnormalities. Renal function WNL. Tested negative for flu, COVID, RSV. CXR showed cardiomegaly and likely interstitial pulmonary edema with tiny pleural effusions. EKG demonstrated new atrial flutter without evidence of ischemia. Pt was treated in the ED with Solu-Medrol and furosemide. Pt is admitted to the hospital for treatment and further evaluation of acute hypoxic respiratory failure in the setting of new onset CHF secondary to new onset atrial flutter. Review of Systems Review of Systems: Negative except for that which is stated in the HPI. [facility] Medical History (Updated 08/03/24 @ 12:49 by YULIYA Burger) KAYLEEN on CPAP BPH (benign prostatic hyperplasia) COPD (chronic obstructive pulmonary disease) HLD (hyperlipidemia) FH: total knee replacement Arthritis HTN (hypertension) Social History Alcohol intake: unknown Patient Tobacco Use Status: Tobacco use Unknown Smoked in Last 30 Days: No Use of substances other than those prescribed or required for medical reasons: No Advance Directives: No Advance Directives Information Provided: Yes Do you have a plan to hurt others: No Plan Nutrition Risks: No Nutritional Risk Meds Allergies Allergy/AdvReac Type Severity Reaction Status Date / Time No Known Allergies Allergy Unverified 08/03/24 08:49 [No Known Allergies*] Home Medications ?Medication ?Instructions ?Recorded ?Confirmed ?Last Taken ?Type albuterol sulfate 90 mcg/actuation 2 puff inhalation Q6H PRN Wheezing 08/03/24 08/03/24 Unknown History aerosol inhaler allopurinol 100 mg tablet 100 mg PO DAILY 08/03/24 08/03/24 08/03/24 History amlodipine 10 mg tablet 10 mg PO DAILY 08/03/24 08/03/24 08/03/24 History atorvastatin 80 mg tablet 80 mg PO BEDTIME 08/03/24 08/03/24 08/02/24 History chlorthalidone 25 mg tablet 25 mg PO DAILY 08/03/24 08/03/24 08/03/24 History cyanocobalamin (vitamin B-12) 2,000 mcg PO DAILY 08/03/24 08/03/24 08/03/24 History 1,000 mcg tablet diclofenac sodium 75 mg 75 mg PO BID 08/03/24 08/03/24 08/03/24 History tablet,delayed release fluticasone propionate 230 2 puff inhalation BID 08/03/24 08/03/24 08/03/24 History mcg-salmeterol 21 mcg/actuation HFA inhaler fluticasone propionate 50 2 spray intranasal DAILY 08/03/24 08/03/24 08/03/24 History mcg/actuation nasal spray,suspension lisinopril 40 mg tablet 40 mg PO DAILY 08/03/24 08/03/24 08/03/24 History loratadine 10 mg tablet 10 mg PO DAILY 08/03/24 08/03/24 08/03/24 History tamsulosin 0.4 mg capsule 0.4 mg PO BEDTIME 08/03/24 08/03/24 08/02/24 History Physical Exam Vital Signs and Narrative: Vital Signs: Last Vital Signs Temp 97.2 F 08/03/24 10:19 Pulse 64 08/03/24 10:19 Resp 15 08/03/24 10:19 BP 138/67 08/03/24 10:19 Pulse Ox 95 08/03/24 10:19 O2 Del Method Nasal Cannula 08/03/24 10:19 O2 Flow Rate 2 08/03/24 10:19 BMI result Body Mass Index 34.9 Constitutional: Alert, in no acute distress. Mental Status: Oriented to person, place and time. Eyes: Pupils are equal, round, and reactive to light. Ear, Nose, and Throat: Oropharynx clear, mucous membranes moist. Ears and nose without deformities. Trachea midline. Respiratory: Bilateral crackles in mid and lower lobes. Cardiovascular: Irregularly irregular rhythm. No murmurs, rubs, or gallops. Gastrointestinal: Abdomen soft, non-tender, obese. Normal bowel sounds. Neurologic: Cranial nerves II-XII are grossly intact bilaterally. No focal neurological deficits. Moves all extremities spontaneously. Extremities: 2+ bilateral pitting edema Psychiatric: Normal mood and affect. Results Labs 08/03/24 09:17 08/03/24 09:17 Labs: Laboratory Results - last 24 hr 08/03/24 08/03/24 08/03/24 09:17 09:18 09:22 MCV 99.5 H MCH 32.2 MCHC 32.4 RDW 12.6 Plt Count 143 L MPV 10.4 Immature Gran % (Auto) 0.5 H Neut % (Auto) 75.3 H Lymph % (Auto) 14.3 L Burnett % (Auto) 7.3 Eos % (Auto) 1.8 Baso % (Auto) 0.8 Lymph # (Auto) 1.2 Burnett # (Auto) 0.6 Eos # (Auto) 0.2 Baso # (Auto) 0.1 Abs Immat Gran (auto) 0.04 H Absolute Neuts (auto) 6.4 Absolute Nucleated RBC 0.000 Nucleated RBC % (auto) 0.0 PT 14.6 H INR 1.3 H VBG pH 7.37 VBG pCO2 55 VBG pO2 77 VBG HCO3 32 H VBG O2 Saturation 94.0 VBG Base Excess 5.6 Anion Gap 13 Estim Creat Clear Calc 92.7 Estimated GFR > 60 Random Glucose 136 H Calcium 9.3 Magnesium 2.3 Total Bilirubin 0.5 AST 40 H ALT 46 H Alkaline Phosphatase 63 Troponin I Hi Sens Base 164.0 H* B-Natriuretic Peptide 236 H Total Protein 7.1 Albumin 4.2 Influenza Type A (PCR) NEGATIVE Influenza Type B (PCR) NEGATIVE RSV RNA Qual (PCR) NEGATIVE SARS-CoV-2 RNA (RT-PCR) NEGATIVE Imaging Radiologist's Impressions: Impressions Chest X-Ray 08/03/24 08:51 IMPRESSION: Cardiomegaly, and findings suggesting mild interstitial pulmonary edema with tiny pleural effusions. Chronic scarring in the left base. Electronically signed by: Niall Smart MD 08/03/2024 09:41 AM EDT RP Assessment and Plan (1) Atrial flutter: Status: Acute (2) Hypoxia: Status: Acute (3) Congestive heart failure: Status: Acute Plan Pt is a 73-year-old male with a PMH significant for?HTN, HLD, COPD, arthritis, BPH, and KAYLEEN occasionally compliant with CPAP who presents to the ED with?worsening SOB, PEREYRA, and leg swelling. Pt is admitted to the hospital for treatment and further evaluation of acute hypoxic respiratory failure in the setting of new onset CHF secondary to new onset atrial flutter. Acute hypoxic respiratory failure in the setting of new onset CHF Pt with increased SOB, PEREYRA, LLE, orthopnea x2 weeks, CXR showing pulmonary edema, elevated BNP, satting 84% on RA Likely secondary to new onset atrial flutter Will treat with Lasix 40 mg IV b.i.d. Echocardiogram Monitor I/O, daily weights, lytes Low-salt diet Echocardiogram Titrate supplemental O2 >92, wean as tolerated Monitor on telemetry New onset atrial flutter Pt with EKG showing atrial flutter with HR of 59 Pt noted to have short episode of 8-9:1 atrial flutter with HR as low as 31 Pt asymptomatic, denies palpitations, lightheadedness or dizziness CHADS2-VAsc score 3, will start on Eliquis 5 mg b.i.d. Cardiology consult Monitor on telemetry HTN Continue amlodipine, lisinopril Hold chlorthalidone HLD Continue statin COPD Not in acute exacerbation Continue home inhalers Gout Continue allopurinol BPH Continue tamsulosin Full Code; pt would like CPR attempted only once; does not want long-term intubation Attending:?Dr. Henderson DVT Prophylaxis: On Eliquis Pt will require a hospitalization of at least two nights for treatment of acute hypoxic respiratory failure in the setting of new onset CHF likely secondary to new onset atrial flutter. Pt will require hospital level care for close cardiac and electrolyte monitoring while receiving IV diuresing. Quality Stroke Does the patient have a stroke diagnosis?: No VTE Prior VTE?: No VTE Risk Level:: Medical - moderate - high VTE Device Contraindication: Treatment Not Indicated VTE Drug Contraindication: N/A - Med Ordered
[2024-08-03 11:22] LABS: Reflex Trop? Y
--- NOTE | 2024-08-03 11:30 | PC.NURSE ---
Noted on monitor: pt's flutter became 7:1 with a ventricular rate of 31 for a few seconds; pt was asymptomatic and provider made aware; copy of rhythm strip in pt's chart
--- NOTE | 2024-08-03 11:42 | PHA.MEDREC ---
Pharmacy Consult ? Medication Reconciliation Pharmacy has completed the medication reconciliation. Spoke to patient (had a med list on his phone) to confirm medication list. Last dose of medication was this morning 08/03/24.
[2024-08-03 13:04] LABS: zTroponin-I High Sen Reflex #2 172.6 ng/L (<3.5-35.0)
--- NOTE | 2024-08-03 14:10 | P.CONCA_ITS ---
History of Present Illness History of Present Illness Date of Service: 08/03/24 Requesting physician: Edmundo Henderson Chief complaint: CHF exacerbation Narrative: 73-year-old gentleman presenting with shortness of breath and orthopnea. Clinically in heart failure. He is admitted for further care. He is in atrial flutter with heart rate 62 beats per minute. It appears this is a new diagnosis and digoxin started on apixaban. On supplemental oxygen currently. Apparently was hypoxic in 80s at the time of admission. He is saying he is feeling somewhat better after being on oxygen and Lasix. No chest discomfort currently. Labs and imaging reviewed. EKGs showing atrial flutter 59 beats per minute, leftward axis, can not rule out inferior infarct, QTC 413 milliseconds. [facility] Past Medical History Medical History (Updated 08/03/24 @ 12:49 by YULIYA Burger) KAYLEEN on CPAP BPH (benign prostatic hyperplasia) COPD (chronic obstructive pulmonary disease) HLD (hyperlipidemia) FH: total knee replacement Arthritis HTN (hypertension) Social History Social History Alcohol intake: unknown Patient Tobacco Use Status: Tobacco use Unknown Smoked in Last 30 Days: No Use of substances other than those prescribed or required for medical reasons: No Advance Directives: No Advance Directives Information Provided: Yes Do you have a plan to hurt others: No Plan Nutrition Risks: No Nutritional Risk Meds Allergies Allergy/AdvReac Type Severity Reaction Status Date / Time No Known Allergies Allergy Unverified 08/03/24 08:49 [No Known Allergies*] Active Medications: Current Medications Acetaminophen (Acetaminophen 325 Mg Tablet) 650 mg PO Q6H PRN PRN Reason: Pain, Mild 1-3,fever,headache Albuterol Sulfate (Albuterol Sulfate 90 Mcg 8 Gm Inhaler) 2 puff INHALE Q6H PRN PRN Reason: Wheezing Allopurinol (Allopurinol 100 Mg Tablet) 100 mg PO DAILY [facility] Amlodipine Besylate (Amlodipine Besylate 10 Mg Tablet) 10 mg PO DAILY [facility]; Protocol Apixaban (Apixaban 5 Mg Tablet) 5 mg PO BID [facility] Atorvastatin Calcium (Atorvastatin Calcium 80 Mg Tablet) 80 mg PO BEDTIME [facility] Calcium Carbonate (Calcium Carbonate 750 Mg Tab.Chew) 750 mg PO Q4H PRN PRN Reason: Heartburn Cyanocobalamin (Cyanocobalamin (Vitamin B-12) 1,000 Mcg Tablet) 2,000 mcg PO DAILY [facility] Diclofenac Sodium (Diclofenac Sodium Delayed Rel 75 Mg Tablet.Dr) 75 mg PO BID [facility] Fluticasone Propionate (Fluticasone Propionate Nasal 16 Gm [place]) 2 spray NOSTRIL-B DAILY [facility] Furosemide (Furosemide 40 Mg/4 Ml Vial) 40 mg IVPUSH BID@0900,1800 [facility]; Protocol Lisinopril (Lisinopril 40 Mg Tablet) 40 mg PO DAILY [facility]; Protocol Loratadine (Loratadine 10 Mg Tablet) 10 mg PO DAILY [facility] Magnesium Hydroxide (Milk Of Magnesia 30 Ml Oral.Susp) 30 ml PO DAILY PRN PRN Reason: Constipation Melatonin (Melatonin 3 Mg Tablet) 6 mg PO BEDTIME PRN PRN Reason: Insomnia Sodium Chloride (0.9 % Sodium Chloride Flush 3 Ml Syringe) 3 ml IVFLUSH QSHIFT [facility] Tamsulosin HCl (Tamsulosin Hcl 0.4 Mg Capsule) 0.4 mg PO BEDTIME [facility] Home Medications ?Medication ?Instructions ?Recorded ?Confirmed ?Last Taken ?Type albuterol sulfate 90 mcg/actuation 2 puff inhalation Q6H PRN Wheezing 08/03/24 08/03/24 Unknown History aerosol inhaler allopurinol 100 mg tablet 100 mg PO DAILY 08/03/24 08/03/24 08/03/24 History amlodipine 10 mg tablet 10 mg PO DAILY 08/03/24 08/03/24 08/03/24 History atorvastatin 80 mg tablet 80 mg PO BEDTIME 08/03/24 08/03/24 08/02/24 History chlorthalidone 25 mg tablet 25 mg PO DAILY 08/03/24 08/03/24 08/03/24 History cyanocobalamin (vitamin B-12) 2,000 mcg PO DAILY 08/03/24 08/03/24 08/03/24 History 1,000 mcg tablet diclofenac sodium 75 mg 75 mg PO BID 08/03/24 08/03/24 08/03/24 History tablet,delayed release fluticasone propionate 230 2 puff inhalation BID 08/03/24 08/03/24 08/03/24 History mcg-salmeterol 21 mcg/actuation HFA inhaler fluticasone propionate 50 2 spray intranasal DAILY 08/03/24 08/03/24 08/03/24 History mcg/actuation nasal spray,suspension lisinopril 40 mg tablet 40 mg PO DAILY 08/03/24 08/03/24 08/03/24 History loratadine 10 mg tablet 10 mg PO DAILY 08/03/24 08/03/24 08/03/24 History tamsulosin 0.4 mg capsule 0.4 mg PO BEDTIME 08/03/24 08/03/24 08/02/24 History Physical Exam 2 Vital Signs: Vital Signs: Last Vital Signs Temp 97.8 F 08/03/24 14:06 Pulse 62 08/03/24 14:06 Resp 23 H 08/03/24 14:06 BP 138/62 08/03/24 14:06 Pulse Ox 92 08/03/24 14:06 O2 Del Method Nasal Cannula 08/03/24 14:06 O2 Flow Rate 2 08/03/24 14:06 BMI result Body Mass Index 34.9 GENERAL APPEARANCE: Short of breath, on supplemental oxygen. NECK: no carotid bruit, ++ jugular venous distention. SKIN: no suspicious lesions, warm and dry. HEART: no murmurs, regular rate and rhythm. LUNGS: Crackles mid lungs bilaterally. ABDOMEN: soft, nontender. EXTREMITIES: + edema. PERIPHERAL PULSES: equal. NEUROLOGIC: No gross deficits, AAO X 3 Objective Labs and Meds 08/03/24 09:17 08/03/24 09:17 Lab results: Laboratory Results - last 24 hr 08/03/24 08/03/24 08/03/24 09:17 09:18 09:22 WBC 8.5 RBC 3.91 L Hgb 12.6 L Hct 38.9 L MCV 99.5 H MCH 32.2 MCHC 32.4 RDW 12.6 Plt Count 143 L MPV 10.4 Immature Gran % (Auto) 0.5 H Neut % (Auto) 75.3 H Lymph % (Auto) 14.3 L [place] % (Auto) 7.3 Eos % (Auto) 1.8 Baso % (Auto) 0.8 Lymph # (Auto) 1.2 [place] # (Auto) 0.6 Eos # (Auto) 0.2 Baso # (Auto) 0.1 Abs Immat Gran (auto) 0.04 H Absolute Neuts (auto) 6.4 Absolute Nucleated RBC 0.000 Nucleated RBC % (auto) 0.0 PT 14.6 H INR 1.3 H VBG pH 7.37 VBG pCO2 55 VBG pO2 77 VBG HCO3 32 H VBG O2 Saturation 94.0 VBG Base Excess 5.6 Sodium 140 Potassium 3.6 Chloride 103 Carbon Dioxide 28 Anion Gap 13 BUN 18 H Creatinine 0.79 Estim Creat Clear Calc 92.7 Estimated GFR > 60 Random Glucose 136 H Calcium 9.3 Magnesium 2.3 Total Bilirubin 0.5 AST 40 H ALT 46 H Alkaline Phosphatase 63 Troponin I High Sens Troponin I Hi Sens Base 164.0 H* Troponin I Hi Sens 2 Hr B-Natriuretic Peptide 236 H Total Protein 7.1 Albumin 4.2 Influenza Type A (PCR) NEGATIVE Influenza Type B (PCR) NEGATIVE RSV RNA Qual (PCR) NEGATIVE SARS-CoV-2 RNA (RT-PCR) NEGATIVE 08/03/24 08/03/24 12:27 12:28 WBC RBC Hgb Hct MCV MCH MCHC RDW Plt Count MPV Immature Gran % (Auto) Neut % (Auto) Lymph % (Auto) [place] % (Auto) Eos % (Auto) Baso % (Auto) Lymph # (Auto) [place] # (Auto) Eos # (Auto) Baso # (Auto) Abs Immat Gran (auto) Absolute Neuts (auto) Absolute Nucleated RBC Nucleated RBC % (auto) PT INR VBG pH VBG pCO2 VBG pO2 VBG HCO3 VBG O2 Saturation VBG Base Excess Sodium Potassium Chloride Carbon Dioxide Anion Gap BUN Creatinine Estim Creat Clear Calc Estimated GFR Random Glucose Calcium Magnesium Total Bilirubin AST ALT Alkaline Phosphatase Troponin I High Sens Cancelled Troponin I Hi Sens Base Troponin I Hi Sens 2 Hr 172.6 H* B-Natriuretic Peptide Total Protein Albumin Influenza Type A (PCR) Influenza Type B (PCR) RSV RNA Qual (PCR) SARS-CoV-2 RNA (RT-PCR) Imaging Radiologist's impression: Impressions Chest X-Ray 08/03/24 08:51 IMPRESSION: Cardiomegaly, and findings suggesting mild interstitial pulmonary edema with tiny pleural effusions. Chronic scarring in the left base. Electronically signed by: Niall Smart MD 08/03/2024 09:41 AM EDT Assessment and Plan (1) Atrial flutter: Status: Acute (2) Congestive heart failure: Status: Acute Plan [age] gentleman presenting with acute decompensated heart failure. He is in slow atrial flutter currently. Clinically volume overloaded. Agree with IV diuretics 40 mg IV b.i.d. Lasix. Hold chlorthalidone. Continue the lisinopril. Monitor electrolytes closely. Echocardiography to assess for any LV dysfunction. Depending on his response to medications and diuresis we will decide about inpatient versus outpatient cardioversion. Thank you for allowing me to participate in the care of your patient. Please feel free to contact me if you have any questions. Procedures Date of Service Date of Service: 08/03/24
[2024-08-03] MEDS: Apixaban 5 MG TABLET PO ×2 (14:24→20:53)
--- NOTE | 2024-08-03 17:00 | CA_ITS ---
Transthoracic Echocardiogram Patient (Last, First, Middle): Jamie Roper, Gender: Male Date of : 1950 Age: 73 Procedure Date: 08/03/2024 Procedure Type: Transthoracic Echocardiogram [place] [facility] [place]: 167.64 cm Weight: 97.98 kg BSA: 2.07 m2 Heart Rate: bpm BP: 141 / 54 mmHg Cement Contractor: Referring MD: Madelyn DWYER Symptoms: New onset AFlutter and CHF Study Quality: Fair ECG Rhythm: Atrial Fibrillation Conclusions: - Normal left ventricular size, thickness, systolic function, and wall motion. The visually estimated ejection fraction is between 65-70%. - Mildly increased right ventricular cavity size. There is normal right ventricular systolic function. - The left atrium is mildly dilated. The right atrium is moderately dilated. Findings Procedure Information Contrast agent, definity, is being given per protocol without apparent complications. Left Ventricle Normal left ventricular size, thickness, systolic function, and wall motion. The visually estimated ejection fraction is between 65-70%. Diastolic function is indeterminate on the basis of available data. Right Ventricle Mildly increased right ventricular cavity size. There is normal right ventricular systolic function. Atria The left atrium is mildly dilated. The right atrium is moderately dilated. Aortic Valve Normal aortic valve structure and function. There is no aortic valve stenosis. There is no aortic valve regurgitation. Mitral Valve The mitral valve appears normal. There is no mitral valve regurgitation. There is no mitral valve stenosis. Pulmonic Valve The pulmonic valve is likely normal. Tricuspid Valve Normal tricuspid valve structure. There is trace tricuspid valve regurgitation. The right ventricular systolic pressure is 30 mmHg. Moderately elevated right atrial pressure. There is no evidence of pulmonary hypertension. Great Vessels All visible segments of the aorta are normal in size. Venous The inferior vena cava is dilated and collapses greater than 50% with inspiration. Pericardium/Pleural There is no evidence of pericardial effusion. Prior Study Comparison No prior study available for comparison. Measurements 2D Linear Measurements IVSd: 1.01 0.6-0.9/0.6-1.0 cm LVIDd: 5.03 3.9-5.3/4.2-5.9 cm LVIDd Index: 2.43 2.4-3.2/2.2-3.1 cm/m2 LVIDs: 2.75 2.0-3.6 cm LVPWd: 1.07 0.7-1.1 cm Ao Root: 3.20 2.1-3.5 cm LA Diam: 4.10 2.7-3.8/3.0-4.0 cm LAIDs Index: 1.98 1.5-2.3 cm/m2 LV Mass: 241.45 67-162/88-224 g LV Mass Index: 116.64 43-95/49-115 g/m2 LVOT Diam: 2.10 3.0+(-)1.3 cm 2D Systolic Function EF 4C: 63.50 >55% EF 2C: 61.50 >55% EF BiP: 61.40 >55% Mitral Valve MV Pk E: 1.28 MV Decel Time: 254.00 E'Lateral: 10.60 E'Medial: 7.18 E/E' Med: 17.80 E/E' Lat: 12.10 PHT: 74.00 MVA PHT: 2.97 Decel [place]: 5.05 Aortic Valve AoV Pk Dave: 1.42 AoV Mn Dave: 0.89 AoV VTI: 0.34 AoV Pk Grad: 8.00 Aov Mn Grad: 4.00 JUDITH Cont.VTI: 2.79 LVOT LVOT Pk Dave: 1.08 LVOT Mn Dave: 0.70 LVOT VTI: 0.27 LVOT Pk Grad: 5.00 LVOT Mn Grad: 3.00 LVOT Diam: 2.10 LVOT Area: 3.46 Diastolic Function MV Pk E: 1.28 E'Medial: 7.18 E/E' Med: 17.80 E' Laterial: 10.60 E/E' Lat: 12.10 Right Ventricle TAPSE (mm): 24.00 TVS' Dave: 15.00 Tricuspid Valve TR Pk Dave: 2.59 TR Pk Grad: 27.00 RA Press: 3.00 RVSP: 30.00 Great Vessels Aorta Ao Root-2D: 3.20 2.0-3.7 cm Ao Asc: 3.00 2.1-3.4 cm Pulmonary Valve PV Pk Dave: 0.95 Peak PV Grad: 4.00 Updated in Other Vendor System with Status of Final Chang Hawk MD electronically signed on 08/04/2024 9:17:16 PM with status of Final
[2024-08-03] MEDS: Furosemide 40 MG/4 ML VIAL IVPUSH (19:17)
[2024-08-03] MEDS: 0.9 % Sodium Chloride Flush 3 ML SYRINGE IVFLUSH ×2 (19:17→20:55)
[2024-08-03] MEDS: Atorvastatin Calcium 80 MG TABLET PO (20:53)
[2024-08-03] MEDS: Tamsulosin HCL 0.4 MG CAPSULE PO (20:53)
[2024-08-03] MEDS: Diclofenac Sodium Delayed Rel 75 MG TABLET.DR PO (20:54)
[2024-08-04] VITALS (9 sets, daily range): BP systolic 101–162; BP diastolic 51–77; PULSE 58–85; RESP 16–20; TEMP 36.1–36.8; O2SAT 92–99; BMI 33.8
[2024-08-04 07:32] LABS: Anion Gap 12 (12-20); Blood Urea Nitrogen 21 mg/dL (9-16); Calcium 9.5 mg/dL (8.4-10.2); Carbon Dioxide 33 mmol/L (22-29); Chloride 100 mmol/L (96-108); Creatinine Clr Calc Pharmacy 87.9; Estimated Glomerular Filt Rate > 60; Glucose Random 141 mg/dL (60-115); Magnesium 2.3 mg/dL (1.6-2.6); Potassium 3.6 mmol/L (3.3-5.1); Sodium 141 mmol/L (135-145)
[2024-08-04] MEDS: Cyanocobalamin (Vitamin B-12) 1,000 MCG TABLET 2000 MCG PO (09:38)
[2024-08-04] MEDS: Furosemide 40 MG/4 ML VIAL IVPUSH ×2 (09:38→18:31)
[2024-08-04] MEDS: allopurinoL 100 MG TABLET PO (09:38)
[2024-08-04] MEDS: amLODIPine Besylate 10 MG TABLET PO (09:38)
[2024-08-04] MEDS: Apixaban 5 MG TABLET PO ×2 (09:38→20:11)
[2024-08-04] MEDS: 0.9 % Sodium Chloride Flush 3 ML SYRINGE IVFLUSH ×2 (09:38→18:31)
[2024-08-04] MEDS: Diclofenac Sodium Delayed Rel 75 MG TABLET.DR PO ×2 (09:39→20:11)
[2024-08-04] MEDS: lisinopriL 40 MG TABLET PO (10:24)
[2024-08-04] MEDS: Loratadine 10 MG TABLET PO (10:24)
--- NOTE | 2024-08-04 12:34 | PM.PNCARD ---
Subjective Subjective Date of Service: 08/04/24 Interval history: Seen examined at bedside. Feeling better than yesterday. Still on supplemental oxygen. Physical Exam Vital Signs: Last Vital Signs Temp 98 F 08/04/24 11:35 Pulse 85 08/04/24 11:35 Resp 20 08/04/24 11:35 BP 127/60 08/04/24 11:35 Pulse Ox 96 08/04/24 11:35 O2 Del Method Room Air 08/04/24 11:35 O2 Flow Rate 2 08/04/24 07:12 BMI result Body Mass Index 33.8 GENERAL APPEARANCE: Short of breath, on supplemental oxygen. NECK: no carotid bruit, ++ jugular venous distention. SKIN: no suspicious lesions, warm and dry. HEART: no murmurs, regular rate and rhythm. LUNGS: Crackles both lungs bases. ABDOMEN: soft, nontender. EXTREMITIES: + edema. PERIPHERAL PULSES: equal. NEUROLOGIC: No gross deficits, AAO X 3 Objective Labs and Meds 08/03/24 09:17 08/04/24 06:43 Lab results: Laboratory Results - last 24 hr 08/03/24 08/03/24 08/04/24 12:27 12:28 06:43 Hold Purple Top SEE NOTE Sodium 141 Potassium 3.6 Chloride 100 Carbon Dioxide 33 H Anion Gap 12 BUN 21 H Creatinine 0.82 Estim Creat Clear Calc 87.9 Estimated GFR > 60 Random Glucose 141 H Calcium 9.5 Magnesium 2.3 Troponin I High Sens Cancelled Troponin I Hi Sens 2 Hr 172.6 H* Progress Note: A&P Assessment and plan (1) Atrial flutter: Status: Acute (2) Congestive heart failure: Status: Acute Plan Pleasant 73 year gentleman with acute decompensated congestive heart failure and new onset atrial flutter. He is rate controlled currently. Clinically volume overloaded. Continue Lasix 40 mg IV b.i.d.. Adding spironolactone 25 mg daily. Continue anticoagulation with Eliquis 5 mg twice a day. Still significantly volume overloaded. We will review echocardiography today. If clinically he starts improving then can potentially go home and can get cardioversion for atrial flutter in few weeks. On the other hand if he does not improve significantly despite diuresis then may need inpatient [facility] cardioversion. Thank you for allowing me to participate in the care of your patient. Please feel free to contact me if you have any questions. Time Spent With Patient Time: Total time managing care of this patient today ____ minutes. Progress Note: Quality Stroke Does the patient have a stroke diagnosis?: No Procedures Date of Service Date of Service: 08/04/24
--- NOTE | 2024-08-04 13:29 | MHC.CM.PN ---
CM met with Patient and his Daughter/HCP/ENGINEERING EQUIPMENT OPERATOR/Shairy at bedside. Patient lives alone in an apartment and he has a ENGINEERING EQUIPMENT OPERATOR 48 hours/week and uses home CPAP(No home O2). Home/resume services and ? of new VNA is the tentative plan and CM has initiated and will follow for dc planning. Daughter will transport to home at gilda of dc and PCP is Dr. Curtis Muller.
[2024-08-04] MEDS: Spironolactone 25 MG TABLET PO (13:35)
--- NOTE | 2024-08-04 15:16 | P.PNIM_ITS ---
Subjective Subjective Date of Service: 08/04/24 Interval History: Some improvement overnight per patient. Review of Systems Denies chest pain Denies shortness of breath Denies nausea vomiting diarrhea Denies fever and chills Physical Exam 2 Vital Signs: Vital Signs: Last Vital Signs Temp 98 F 08/04/24 11:35 Pulse 85 08/04/24 11:35 Resp 20 08/04/24 11:35 BP 127/60 08/04/24 11:35 Pulse Ox 96 08/04/24 11:35 O2 Del Method Room Air 08/04/24 11:35 O2 Flow Rate 2 08/04/24 07:12 BMI result Body Mass Index 33.8 Const: Other: Awake alert no acute distress Resp: Other: Bilateral basilar crackles Cardio: Other: No S4; positive S1-S2; no S3 murmurs rubs or gallops GI: Other: Soft nontender nondistended normoactive bowel sounds Extrem: Other: No edema bilaterally Objective Data Active Medications Acetaminophen (Acetaminophen 325 Mg Tablet) 650 mg PO Q6H PRN PRN Reason: Pain, Mild 1-3,fever,headache Albuterol Sulfate (Albuterol Sulfate 90 Mcg 8 Gm Inhaler) 2 puff INHALE Q6H PRN PRN Reason: Wheezing Allopurinol (Allopurinol 100 Mg Tablet) 100 mg PO DAILY [facility] Last Admin: 08/04/24 09:38 Dose: 100 mg Documented By: SOFIYA Amlodipine Besylate (Amlodipine Besylate 10 Mg Tablet) 10 mg PO DAILY [facility]; Protocol Last Admin: 08/04/24 09:38 Dose: 10 mg Documented By: SOFIYA Apixaban (Apixaban 5 Mg Tablet) 5 mg PO BID [facility] Last Admin: 08/04/24 09:38 Dose: 5 mg Documented By: SOFIYA Atorvastatin Calcium (Atorvastatin Calcium 80 Mg Tablet) 80 mg PO BEDTIME [facility] Last Admin: 08/03/24 20:53 Dose: 80 mg Documented By: TAYLOR Calcium Carbonate (Calcium Carbonate 750 Mg Tab.Chew) 750 mg PO Q4H PRN PRN Reason: Heartburn Cyanocobalamin (Cyanocobalamin (Vitamin B-12) 1,000 Mcg Tablet) 2,000 mcg PO DAILY [facility] Last Admin: 08/04/24 09:38 Dose: 2,000 mcg Documented By: SOFIYA Diclofenac Sodium (Diclofenac Sodium Delayed Rel 75 Mg Tablet.) 75 mg PO BID [facility] Last Admin: 08/04/24 09:39 Dose: 75 mg Documented By: SOFIYA Fluticasone Propionate (Fluticasone Propionate Nasal 16 Gm [place]) 2 spray NOSTRIL-B DAILY [facility] Last Admin: 08/04/24 10:26 Dose: Not Given Documented By: SOFIYA Non-Admin Reason: Med Not Available Furosemide (Furosemide 40 Mg/4 Ml Vial) 40 mg IVPUSH BID@0900,1800 [facility]; Protocol Last Admin: 08/04/24 09:38 Dose: 40 mg Documented By: SOFIYA Lisinopril (Lisinopril 40 Mg Tablet) 40 mg PO DAILY [facility]; Protocol Last Admin: 08/04/24 10:24 Dose: 40 mg Documented By: SOFIYA Loratadine (Loratadine 10 Mg Tablet) 10 mg PO DAILY [facility] Last Admin: 08/04/24 10:24 Dose: 10 mg Documented By: SOFIYA Magnesium Hydroxide (Milk Of Magnesia 30 Ml Oral.Susp) 30 ml PO DAILY PRN PRN Reason: Constipation Melatonin (Melatonin 3 Mg Tablet) 6 mg PO BEDTIME PRN PRN Reason: Insomnia Sodium Chloride (0.9 % Sodium Chloride Flush 3 Ml Syringe) 3 ml IVFLUSH QSHIFT [facility] Last Admin: 08/04/24 09:38 Dose: 3 ml Documented By: SOFIYA Spironolactone (Spironolactone 25 Mg Tablet) 25 mg PO DAILY [facility]; Protocol Last Admin: 08/04/24 13:35 Dose: 25 mg Documented By: SOFIYA Tamsulosin HCl (Tamsulosin Hcl 0.4 Mg Capsule) 0.4 mg PO BEDTIME [facility] Last Admin: 08/03/24 20:53 Dose: 0.4 mg Documented By: TAYLOR Labs 08/03/24 09:17 08/04/24 06:43 Labs: Laboratory Results - last 24 hr 08/04/24 06:43 Hold Purple Top SEE NOTE Anion Gap 12 Estim Creat Clear Calc 87.9 Estimated GFR > 60 Random Glucose 141 H Calcium 9.5 Magnesium 2.3 Assessment and Plan (1) Atrial flutter: Status: Acute (2) Congestive heart failure: Status: Acute (3) HTN (hypertension): Status: Acute Plan Pt is a 73-year-old male with a PMH significant for?HTN, HLD, COPD, arthritis, BPH, and KAYLEEN occasionally compliant with CPAP who presents to the ED with?worsening SOB, PEREYRA, and leg swelling. Pt is admitted to the hospital for treatment and further evaluation of acute hypoxic respiratory failure in the setting of new onset CHF secondary to new onset atrial flutter. 1.Acute hypoxic respiratory failure/new onset CHF -40 mg IV b.i.d. -Echocardiogram -titrate supplemental O2 >92, wean as tolerated -monitor on telemetry 2.New onset atrial flutter -appreciate cardiology input -continue Eliquis b.i.d. -cardiology to consider inpatient versus outpatient cardioversion 3.HTN -acceptable control on current therapies -adjust as indicated 4.COPD -stable and well compensated- -continue outpatient therapies Gout Continue allopurinol BPH Continue tamsulosin Full code Eliquis Requires ongoing hospitalization for IV diuresis for new onset a flutter with CHF Quality Stroke Does the patient have a stroke diagnosis?: No VTE Prior VTE?: No VTE Risk Level:: Medical - moderate - high VTE Device Contraindication: Treatment Not Indicated VTE Drug Contraindication: N/A - Med Ordered
[2024-08-04] MEDS: Tamsulosin HCL 0.4 MG CAPSULE PO (20:11)
[2024-08-04] MEDS: Atorvastatin Calcium 80 MG TABLET PO (20:11)
[2024-08-05] VITALS (8 sets, daily range): BP systolic 108–143; BP diastolic 53–63; PULSE 61–71; RESP 16–23; TEMP 36.3–36.6; O2SAT 94–99; BMI 35.0
[2024-08-05] MEDS: 0.9 % Sodium Chloride Flush 3 ML SYRINGE IVFLUSH ×4 (00:05→20:39)
[2024-08-05 07:51] LABS: Anion Gap 14 (12-20); Blood Urea Nitrogen 28 mg/dL (9-16); Calcium 9.3 mg/dL (8.4-10.2); Carbon Dioxide 35 mmol/L (22-29); Chloride 99 mmol/L (96-108); Estimated Glomerular Filt Rate > 60; Glucose Random 114 mg/dL (60-115); Potassium 3.6 mmol/L (3.3-5.1); Sodium 144 mmol/L (135-145)
[2024-08-05] MEDS: Spironolactone 25 MG TABLET PO (08:35)
[2024-08-05] MEDS: Apixaban 5 MG TABLET PO ×2 (08:35→20:39)
[2024-08-05] MEDS: Cyanocobalamin (Vitamin B-12) 1,000 MCG TABLET 2000 MCG PO (08:38)
[2024-08-05] MEDS: amLODIPine Besylate 10 MG TABLET PO (08:38)
[2024-08-05] MEDS: lisinopriL 40 MG TABLET PO (08:39)
[2024-08-05] MEDS: allopurinoL 100 MG TABLET PO (08:39)
[2024-08-05] MEDS: Furosemide 40 MG/4 ML VIAL IVPUSH ×2 (08:39→17:02)
[2024-08-05] MEDS: Loratadine 10 MG TABLET PO (08:39)
[2024-08-05] MEDS: Diclofenac Sodium Delayed Rel 75 MG TABLET.DR PO ×2 (08:44→20:39)
--- NOTE | 2024-08-05 10:46 | PM.PNCARD ---
Subjective Subjective Date of Service: 08/05/24 Interval history: Seen examined at bedside. Improving slowly. Still on supplemental oxygen. Physical Exam Vital Signs: Last Vital Signs Temp 97.5 F 08/05/24 07:50 Pulse 67 08/05/24 07:50 Resp 18 08/05/24 07:50 BP 120/63 08/05/24 07:50 Pulse Ox 94 08/05/24 07:50 O2 Del Method Room Air 08/05/24 07:50 O2 Flow Rate 2 08/04/24 19:40 BMI result Body Mass Index 35.0 GENERAL APPEARANCE: In no distress, on supplemental oxygen. NECK: no carotid bruit, + jugular venous distention. SKIN: no suspicious lesions, warm and dry. HEART: no murmurs, regular rate and rhythm. LUNGS: Crackles both lungs bases. ABDOMEN: soft, nontender. EXTREMITIES: + edema. PERIPHERAL PULSES: equal. NEUROLOGIC: No gross deficits, AAO X 3 Objective Labs and Meds 08/03/24 09:17 08/05/24 07:09 Lab results: Laboratory Results - last 24 hr 08/05/24 08/05/24 07:05 07:09 Hold Purple Top SEE NOTE Sodium 144 Potassium 3.6 Chloride 99 Carbon Dioxide 35 H Anion Gap 14 BUN 28 H Creatinine 0.94 Estim Creat Clear Calc 78.0 Estimated GFR > 60 Random Glucose 114 Calcium 9.3 Progress Note: A&P Assessment and plan (1) Atrial flutter: Status: Acute (2) Congestive heart failure: Status: Acute Plan Pleasant 73 year gentleman with acute decompensated congestive heart failure and new onset atrial flutter. He is rate controlled currently. Clinically volume overloaded. Continue Lasix 40 mg IV b.i.d.. Added spironolactone 25 mg daily. Continue anticoagulation with Eliquis 5 mg twice a day. Added Jardiance 10 mg daily. Plan is diuresis and discharged home and we can arrange cardioversion as outpatient in 3-4 weeks. Still volume overloaded currently and continue IV diuretics. Thank you for allowing me to participate in the care of your patient. Please feel free to contact me if you have any questions. Time Spent With Patient Time: Total time managing care of this patient today ____ minutes. Progress Note: Quality Stroke Does the patient have a stroke diagnosis?: No Procedures Date of Service Date of Service: 08/05/24
--- NOTE | 2024-08-05 11:20 | HO.PM.IMPN ---
Subjective Subjective Date of Service: 08/05/24 Interval History: Overall feels better, still wit sings of fluid overload Physical Exam Vital Signs: Vital Signs: Last Vital Signs Temp 97.5 F 08/05/24 07:50 Pulse 67 08/05/24 07:50 Resp 18 08/05/24 07:50 BP 120/63 08/05/24 07:50 Pulse Ox 94 08/05/24 07:50 O2 Del Method Room Air 08/05/24 07:50 O2 Flow Rate 2 08/04/24 19:40 BMI result Body Mass Index 35.0 Const: Other: General: AO X 3, no acute distress Resp: CTA bilateral CVS: S1,S2,RRR, leg edema GI: +BS, NT, no distention Skin: No rash Neuro: motor grossly intact Psych: appropriate affect Objective Data Active Medications Acetaminophen (Acetaminophen 325 Mg Tablet) 650 mg PO Q6H PRN PRN Reason: Pain, Mild 1-3,fever,headache Albuterol Sulfate (Albuterol Sulfate 90 Mcg 8 Gm Inhaler) 2 puff INHALE Q6H PRN PRN Reason: Wheezing Allopurinol (Allopurinol 100 Mg Tablet) 100 mg PO DAILY [facility] Last Admin: 08/05/24 08:39 Dose: 100 mg Documented By: ALLISON Amlodipine Besylate (Amlodipine Besylate 10 Mg Tablet) 10 mg PO DAILY [facility]; Protocol Last Admin: 08/05/24 08:38 Dose: 10 mg Documented By: ALLISON Apixaban (Apixaban 5 Mg Tablet) 5 mg PO BID [facility] Last Admin: 08/05/24 08:35 Dose: 5 mg Documented By: ALLISON Atorvastatin Calcium (Atorvastatin Calcium 80 Mg Tablet) 80 mg PO BEDTIME [facility] Last Admin: 08/04/24 20:11 Dose: 80 mg Documented By: LEESA Calcium Carbonate (Calcium Carbonate 750 Mg Tab.Chew) 750 mg PO Q4H PRN PRN Reason: Heartburn Cyanocobalamin (Cyanocobalamin (Vitamin B-12) 1,000 Mcg Tablet) 2,000 mcg PO DAILY [facility] Last Admin: 08/05/24 08:38 Dose: 2,000 mcg Documented By: ALLISON Diclofenac Sodium (Diclofenac Sodium Delayed Rel 75 Mg Tablet.) 75 mg PO BID [facility] Last Admin: 08/05/24 08:44 Dose: 75 mg Documented By: ALLISON Empagliflozin (Empagliflozin 10 Mg Tablet) 10 mg PO DAILY [facility] Fluticasone Propionate (Fluticasone Propionate Nasal 16 Gm [place]) 2 spray NOSTRIL-B DAILY [facility] Last Admin: 08/05/24 08:46 Dose: Not Given Documented By: ALLISON Non-Admin Reason: Patient Refused Furosemide (Furosemide 40 Mg/4 Ml Vial) 40 mg IVPUSH BID@0900,1800 [facility]; Protocol Last Admin: 08/05/24 08:39 Dose: 40 mg Documented By: ALLISON Lisinopril (Lisinopril 40 Mg Tablet) 40 mg PO DAILY [facility]; Protocol Last Admin: 08/05/24 08:39 Dose: 40 mg Documented By: ALLISON Loratadine (Loratadine 10 Mg Tablet) 10 mg PO DAILY [facility] Last Admin: 08/05/24 08:39 Dose: 10 mg Documented By: ALLISON Magnesium Hydroxide (Milk Of Magnesia 30 Ml Oral.Susp) 30 ml PO DAILY PRN PRN Reason: Constipation Melatonin (Melatonin 3 Mg Tablet) 6 mg PO BEDTIME PRN PRN Reason: Insomnia Sodium Chloride (0.9 % Sodium Chloride Flush 3 Ml Syringe) 3 ml IVFLUSH QSHIFT [facility] Last Admin: 08/05/24 08:45 Dose: 3 ml Documented By: ALLISON Spironolactone (Spironolactone 25 Mg Tablet) 25 mg PO DAILY [facility]; Protocol Last Admin: 08/05/24 08:35 Dose: 25 mg Documented By: ALLISON Tamsulosin HCl (Tamsulosin Hcl 0.4 Mg Capsule) 0.4 mg PO BEDTIME [facility] Last Admin: 08/04/24 20:11 Dose: 0.4 mg Documented By: FOGARTB Labs 08/03/24 09:17 08/05/24 07:09 Labs: Laboratory Results - last 24 hr 08/05/24 08/05/24 07:05 07:09 Hold Purple Top SEE NOTE Anion Gap 14 Estim Creat Clear Calc 78.0 Estimated GFR > 60 Random Glucose 114 Calcium 9.3 Assessment and Plan (1) Atrial flutter: Status: Acute (2) Congestive heart failure: Status: Acute (3) HTN (hypertension): Status: Acute Plan Pt is a 73-year-old male with a PMH significant for?HTN, HLD, COPD, arthritis, BPH, and KAYLEEN occasionally compliant with CPAP who presents to the ED with?worsening SOB, PEREYRA, and leg swelling. Pt is admitted to the hospital for treatment and further evaluation of acute hypoxic respiratory failure in the setting of new onset CHF secondary to new onset atrial flutter. 1.Acute hypoxic respiratory failure/new onset CHF -40 mg IV b.i.d., so far nega 2.9 L -Echocardiogram tomorrow -titrate supplemental O2 >92, wean as tolerated -monitor on telemetry -jardiance 2.New onset atrial flutter, with slow rate -continue Eliquis b.i.d. -Outpatient cardioversion 3.HTN -acceptable control on current therapies -adjust as indicated 4.COPD -stable and well compensated- -continue outpatient therapies Gout Continue allopurinol BPH Continue tamsulosin Full code Eliquis Requires ongoing hospitalization for IV diuresis for new onset a flutter with CHF Quality Stroke Does the patient have a stroke diagnosis?: No VTE Prior VTE?: No VTE Risk Level:: Medical - moderate - high VTE Device Contraindication: Treatment Not Indicated VTE Drug Contraindication: N/A - Med Ordered
[2024-08-05] MEDS: Empagliflozin 10 MG TABLET PO (11:44)
--- NOTE | 2024-08-05 15:23 | PC.NURSE ---
3.1 second pause noted on telemetry. Dr Torres notified and photo of tracing sent for evaluation.
[2024-08-05] MEDS: Tamsulosin HCL 0.4 MG CAPSULE PO (20:39)
[2024-08-05] MEDS: Atorvastatin Calcium 80 MG TABLET PO (20:39)
[2024-08-06 03:28] VITALS: BP 132/63; PULSE 65; RESP 20; TEMP 36.4; O2SAT 93
[2024-08-06 07:08] VITALS: BP 122/65; PULSE 57; RESP 18; TEMP 36.3; O2SAT 96
[2024-08-06 07:32] LABS: Anion Gap 12 (12-20); Blood Urea Nitrogen 23 mg/dL (9-16); Calcium 9.4 mg/dL (8.4-10.2); Carbon Dioxide 39 mmol/L (22-29); Chloride 97 mmol/L (96-108); Creatinine Clr Calc Pharmacy 85.2; Estimated Glomerular Filt Rate > 60; Glucose Random 119 mg/dL (60-115); Potassium 3.6 mmol/L (3.3-5.1); Sodium 144 mmol/L (135-145)
[2024-08-06] MEDS: Diclofenac Sodium Delayed Rel 75 MG TABLET.DR PO (08:11)
[2024-08-06] MEDS: Empagliflozin 10 MG TABLET PO (08:12)
[2024-08-06] MEDS: Apixaban 5 MG TABLET PO (08:12)
[2024-08-06] MEDS: Cyanocobalamin (Vitamin B-12) 1,000 MCG TABLET 2000 MCG PO (08:12)
[2024-08-06] MEDS: Loratadine 10 MG TABLET PO (08:12)
[2024-08-06] MEDS: allopurinoL 100 MG TABLET PO (08:12)
[2024-08-06] MEDS: Spironolactone 25 MG TABLET PO (08:12)
[2024-08-06] MEDS: amLODIPine Besylate 10 MG TABLET PO (08:12)
[2024-08-06] MEDS: lisinopriL 40 MG TABLET PO (08:12)
[2024-08-06] MEDS: 0.9 % Sodium Chloride Flush 3 ML SYRINGE IVFLUSH ×2 (08:14→16:48)
[2024-08-06] MEDS: Furosemide 40 MG/4 ML VIAL IVPUSH (08:14)
[2024-08-06 11:38] VITALS: BP 119/60; PULSE 65; RESP 19; TEMP 36.3; O2SAT 92
[2024-08-06 15:22] VITALS: BP 140/68; PULSE 67; RESP 17; TEMP 36.4; O2SAT 92
[2024-08-06] MEDS: acetaZOLAMIDE sodium 500 MG VIAL 250 MG IVPUSH (16:48)
--- NOTE | 2024-08-06 17:00 | PM.DS ---
DS: Providers Provider Date of Service: 08/06/24 Date of admission: 08/03/24 10:45 Date of discharge: 08/06/24 Primary care physician: Curtis Muller III, MD Consults: 08/03/24 10:19 Consult to Cardiology Stat Consulting Provider: [facility] Reason for consultation: new atrial flutter, new CHF, elevated troponin Has provider been notified: Yes 08/03/24 12:03 Consult to Cardiology Routine Consulting Provider: [facility] Reason for consultation: New onset Aflutter & CHF DS: Diagnosis Discharge Diagnosis (1) Atrial flutter: Status: Acute (2) Congestive heart failure: Status: Acute (3) HTN (hypertension): Status: Acute DS: Summary Hospital Course Hospital Course: Attending physician on admission: Edmundo Henderson Chief Complaint: SOB Pt is a 73-year-old male with a PMH significant for?HTN, HLD, COPD, arthritis, BPH, and KAYLEEN occasionally compliant with CPAP who presents to the ED with?worsening SOB, PEREYRA, and leg swelling. Pt complains of chronic SOB for the past 10 years secondary to COPD, though has been worsening the past couple of months, significantly so the past 1-2 weeks. SOB occurs at rest though worsened with exertion, can no longer walk up stairs or lie flat on his back at night. Pt has also noticed significant leg swelling for the past 10-14 days. Pt denies any significant cardiac hx and regularly follows with PCP. Denies chest pain/pressure, palpitations. No fever, chills. Denies nausea, vomiting, abdominal pain. In the ED pt was tachypneic up to 26, with soft diastolic BP as low as 128/52, and hypoxic at 84% on RA. Labs were significant for BNP 236 and initial troponin 164.0. Mild transaminitis of AST 40 and ALT 46, similar to prior. No leukocytosis. Stable microcytic anemia of 12.6/38.9 with MCV 99.5. VBG with pH 7.37, pCO2 55, and bicarb 32. No significant electrolyte abnormalities. Renal function WNL. Tested negative for flu, COVID, RSV. CXR showed cardiomegaly and likely interstitial pulmonary edema with tiny pleural effusions. EKG demonstrated new atrial flutter without evidence of ischemia. Pt was treated in the ED with Solu-Medrol and furosemide. Pt is admitted to the hospital for treatment and further evaluation of acute hypoxic respiratory failure in the setting of new onset CHF secondary to new onset atrial flutter. hospital course: Pt is a 73-year-old male with a PMH significant for?HTN, HLD, COPD, arthritis, BPH, and KAYLEEN occasionally compliant with CPAP who presents to the ED with?worsening SOB, PEREYRA, and leg swelling. Pt is admitted to the hospital for treatment and further evaluation of acute hypoxic respiratory failure in the setting of new onset CHF secondary to new onset atrial flutter. 1.Acute hypoxic respiratory failure/new onset CHF -40 mg IV b.i.d., so far nega 2.9 L -Echocardiogram tomorrow -titrate supplemental O2 >92, wean as tolerated -monitor on telemetry -jardiance 2.New onset atrial flutter, with slow rate -continue Eliquis b.i.d. -Outpatient cardioversion 3.HTN -acceptable control on current therapies -adjust as indicated 4.COPD -stable and well compensated- -continue outpatient therapies Gout Continue allopurinol BPH Continue tamsulosin Full code Eliquis Requires ongoing hospitalization for IV diuresis for new onset a flutter with CHF Time Attestation Discharge Coordination Time (in mins): 45 Quality: Safe Use of Opioids Does Pt have an Active Cancer Diagnosis on the Problem List?: No Quality: Stroke Does the patient have a stroke diagnosis?: No Physical Exam Vital Signs: Vital Signs: Last Vital Signs Temp 97.5 F 08/06/24 15:22 Pulse 67 08/06/24 15:22 Resp 17 08/06/24 15:22 BP 140/68 H 08/06/24 15:22 Pulse Ox 92 08/06/24 15:22 O2 Del Method Room Air 08/06/24 15:22 O2 Flow Rate 2 08/06/24 07:08 BMI result Body Mass Index 35.0 Const: Other: General: AO X 3, no acute distress Resp: CTA bilateral CVS: S1,S2,RRR, leg edema GI: +BS, NT, no distention Skin: No rash Neuro: motor grossly intact Psych: appropriate affect DS: Data Data Completed and Pending Labs on day of discharge: Laboratory Results - last 24 hr 08/06/24 06:45 Hold Purple Top SEE NOTE Sodium 144 Potassium 3.6 Chloride 97 Carbon Dioxide 39 H Anion Gap 12 BUN 23 H Creatinine 0.86 Estim Creat Clear Calc 85.2 Estimated GFR > 60 Random Glucose 119 H Calcium 9.4 Discharge Plan Discharge Anticipated Discharge Date/Time: 08/06/24 16:31 Patient Disposition: Home Health Service Discharge Diagnosis: CHF, AFIB Referrals: Curtis Muller III, MD [Primary Care Provider] - 1 Week Discharge Medications: New Jardiance 10 mg Tablet 10 mg PO DAILY Qty: 180 0RF spironolactone 25 mg Tablet 25 mg PO DAILY Qty: 90 0RF Protocol: Hold for SBP< HOLD for SBP < : 90 Eliquis 5 mg Tablet 5 mg PO BID Qty: 180 0RF furosemide [Lasix] 40 mg tablet 40 mg PO QAM Qty: 180 0RF Continued atorvastatin 80 mg tablet 80 mg PO BEDTIME cyanocobalamin (vitamin B-12) 1,000 mcg tablet 2,000 mcg PO DAILY allopurinol 100 mg tablet 100 mg PO DAILY tamsulosin 0.4 mg capsule 0.4 mg PO BEDTIME amlodipine 10 mg tablet 10 mg PO DAILY diclofenac sodium 75 mg tablet,delayed release (DR/EC) 75 mg PO BID lisinopril 40 mg tablet 40 mg PO DAILY fluticasone propionate 50 mcg/actuation spray,suspension 2 spray intranasal DAILY loratadine 10 mg tablet 10 mg PO DAILY fluticasone propion-salmeterol 230-21 mcg/actuation HFA aerosol inhaler 2 puff inhalation BID albuterol sulfate 90 mcg/actuation Hfa Aerosol Inhaler 2 puff INHALATION Q6H PRN (Reason: Wheezing) Discontinued chlorthalidone 25 mg tablet 25 mg PO DAILY Discharge Orders: Discharge Order (Routine); Ordered 08/06/24 Ordered By: Tacho Toabr Diet: Advance to usual diet Activity on Discharge: As tolerated Stand Alone Forms: Patient Portal Discharge page Print Language: Bulgarian Other Ambulatory Orders: Basic Metabolic Panel Fasting (Routine) Timeframe: 20240810 Facility: [facility] - Location: Laboratory Ordered By: Tacho Tobar Care Plan Goals: recovery from heart failure, afib and hypoxia Health Concerns: AFIB heart failure hypoxia HTN Plan of Treatment: Stop taking HCTZ and take Lasix instead take eliquis to prevent stroke take jardiance and aldactone for heart failure avoid drinking water in exccess no more than 2 liters a day weight yourself daily, if your weight goes up to to more than 2 Ib in a day, call your doctor or if you are feeling short of breath, call 911 or come to emergency Follow up with Dr. Hawk and your primary care doctor Assessment: see above
== END 2024-08-06 18:13 | disposition home health service (06) | DRG 308 ==
LOC: HO.ED 10:48 → HO.EDOVER 10:50 → HO.IMC 18:09
PROVIDERS: Hospitalist; Physician Assistant Medical; Admitting Provider Student in an Organized Health Care Education/Training Program; Emergency Provider Emergency Medicine; PCP Internal Medicine; Visit Provider Internal Medicine
DX: I48.92 Unspecified atrial flutter (principal); J96.01 Acute respiratory failure with hypoxia; D50.9 Iron deficiency anemia, unspecified; I11.0 Hypertensive heart disease with heart failure; J44.9 Chronic obstructive pulmonary disease, unspecified; G47.33 Obstructive sleep apnea (adult) (pediatric); I50.9 Heart failure, unspecified; M10.9 Gout, unspecified; N40.0 Benign prostatic hyperplasia without lower urinary tract symptoms; Z20.822 Contact with and (suspected) exposure to COVID-19; Z91.199 Patient's noncompliance with other medical treatment and regimen due to unspecified reason; Z79.51 Long term (current) use of inhaled steroids; Z79.899 Other long term (current) drug therapy
CPT/HCPCS: 0241U; 36415; 71046; 80048; 80053; 82803; 83735; 83880; 84484; 85025; 85610; 93005; 93306; 94660; 99285; J1120; J1938; J2919; Q9957

== ENCOUNTER → 2024-08-03 08:51 | Outpatient (BNV) | payer OTHER, SELFPAY | PROVIDERS: Emergency Provider Emergency Medicine; PCP Internal Medicine; Visit Provider Radiology Diagnostic Radiology | DX: I51.7 Cardiomegaly (principal) | CPT/HCPCS: 71046 ==

== ENCOUNTER → 2024-08-03 10:45 | Outpatient (BNV) | payer OTHER, SELFPAY | PROVIDERS: Admitting Provider Student in an Organized Health Care Education/Training Program; Emergency Provider Emergency Medicine; PCP Internal Medicine; Visit Provider Internal Medicine Cardiovascular Disease | DX: I48.92 Unspecified atrial flutter (principal); I11.0 Hypertensive heart disease with heart failure; I50.9 Heart failure, unspecified | CPT/HCPCS: 93010; 93306; 99223; 99232; 99233 ==

== ENCOUNTER → 2024-08-03 10:45 | Outpatient (BNV) | payer OTHER, SELFPAY | PROVIDERS: Admitting Provider Student in an Organized Health Care Education/Training Program; Emergency Provider Emergency Medicine; PCP Internal Medicine; Visit Provider Student in an Organized Health Care Education/Training Program | DX: I48.92 Unspecified atrial flutter (principal); I50.9 Heart failure, unspecified; I10 Essential (primary) hypertension | CPT/HCPCS: 99223; 99232 ==

== ENCOUNTER 2024-08-08 14:10 | Emergency (ER) | payer OTHER, SELFPAY ==
--- NOTE | ~2024-08-08 | XR_ITS ---
EXAMINATION: XR CHEST CLINICAL INFORMATION: dizziness COMPARISON: 08/03/2024. TECHNIQUE: Frontal view of the chest was obtained. FINDINGS: The cardiac, hilar, and mediastinal contours are normal. Lungs demonstrate minimal linear type atelectasis bilateral lateral costophrenic sulci. Lungs otherwise clear. No pneumothorax or effusion. No focal osseous or soft tissue abnormality. XR/XR chest 1V IMPRESSION: No active pulmonary disease. Electronically signed by: Niall Smart MD 08/08/2024 03:37 PM EDT
--- NOTE | 2024-08-08 14:19 | ED_ITS ---
HPI - General Adult General Chief complaint: Dizziness Stated complaint: Not Feeling Well Dizzy Time Seen by Provider: 08/08/24 15:48 History of Present Illness ED Provider: Umang Wright MD HPI narrative: 73-year-old male with recent admission for new onset a flutter and decompensated diastolic heart failure per cardiology notes which I have reviewed. The patient was started on apixaban, Lasix and other medications for this and improved he reports since discharge he has felt continued dizziness that he felt during the hospitalization he describes this as generally having trouble focusing and slight lightheadedness sensation no room spinning. He denies tinnitus ear pain hearing loss. There has been no chest pain today or since the hospitalization at all. He does not feel short of breath and he has been relatively active Related Data Home Medications ?Medication ?Instructions ?Recorded ?Confirmed albuterol sulfate 90 mcg/actuation 2 puff inhalation Q6H PRN Wheezing 08/03/24 08/03/24 aerosol inhaler allopurinol 100 mg tablet 100 mg PO DAILY 08/03/24 08/03/24 amlodipine 10 mg tablet 10 mg PO DAILY 08/03/24 08/03/24 atorvastatin 80 mg tablet 80 mg PO BEDTIME 08/03/24 08/03/24 cyanocobalamin (vitamin B-12) 2,000 mcg PO DAILY 08/03/24 08/03/24 1,000 mcg tablet diclofenac sodium 75 mg 75 mg PO BID 08/03/24 08/03/24 tablet,delayed release fluticasone propionate 230 2 puff inhalation BID 08/03/24 08/03/24 mcg-salmeterol 21 mcg/actuation HFA inhaler fluticasone propionate 50 2 spray intranasal DAILY 08/03/24 08/03/24 mcg/actuation nasal spray,suspension lisinopril 40 mg tablet 40 mg PO DAILY 08/03/24 08/03/24 loratadine 10 mg tablet 10 mg PO DAILY 08/03/24 08/03/24 tamsulosin 0.4 mg capsule 0.4 mg PO BEDTIME 08/03/24 08/03/24 Previous Rx's ?Medication ?Instructions ?Recorded apixaban 5 mg tablet (Eliquis) 5 mg PO BID #180 tabs 08/06/24 empagliflozin 10 mg tablet 10 mg PO DAILY #180 tabs 08/06/24 (Jardiance) furosemide 40 mg tablet (Lasix) 40 mg PO QAM #180 tabs 08/06/24 spironolactone 25 mg tablet 25 mg PO DAILY #90 tabs 08/06/24 Allergies Allergy/AdvReac Type Severity Reaction Status Date / Time No Known Allergies Allergy Verified 08/08/24 14:26 [No Known Allergies*] [facility] Past Medical History Medical History (Updated 08/09/24 @ 00:00 by Lorri Snyder) KAYLEEN on CPAP BPH (benign prostatic hyperplasia) COPD (chronic obstructive pulmonary disease) HLD (hyperlipidemia) FH: total knee replacement Arthritis HTN (hypertension) Social History Social History Household Members: None Housing: Apartment Do you presently have visiting nurse or other home services: Yes Alcohol intake: unknown Patient Tobacco Use Status: Never used Tobacco Second Hand Smoke Exposure: No Use of substances other than those prescribed or required for medical reasons: No Advance Directives: No Advance Directives Information Provided: Yes service: Yes Physical Exam ED Vital Signs: Vital Signs - 24 hr 08/08/24 14:21 08/08/24 15:49 08/08/24 15:52 Temperature 98.7 F Pulse Rate 70 55 62 Respiratory Rate 18 Blood Pressure 136/73 147/63 H 140/65 H Pulse Oximetry 93 Oxygen Delivery Method Room Air 08/08/24 15:53 08/08/24 17:58 Temperature 98.7 F Pulse Rate 72 72 Respiratory Rate 18 Blood Pressure 124/59 L 124/59 L Pulse Oximetry 96 Oxygen Delivery Method Room Air BMI result Body Mass Index 32.3 Const Other: EXAM: Gen: Alert, awake, well appearing, well hydrated. Euvolemic Head: Atraumatic Eyes: Anicteric, Normal conjunctiva. ENT: Moist mucosa, no pallor. Neck: Supple. Respiratory: Breathing comfortably, No distress.Clear to auscultation bilaterally, symmetric chest expansion, No wheeze, rales, ronchi. Cardiovascular: Regular rate and rhythm. No murmurs or rub. Well perfused periphery, warm extremities. No edema. Abdominal: Soft, no objective distension. No palpable masses or obvious organomegaly. No focal tenderness, no guarding, no rebound tenderness or other peritoneal findings. : No flank tenderness. Neuro: Alert. Gross movement of all extremities intact. Vital signs: See flowsheet Course Course Course Narrative: This is a Rapid Medical Exam performed in triage by Maureen Gandara PA-C. Full HPI, ROS and PE to be performed by primary ED provider. 73 yo M w/PMHx KAYLEEN on CPAP, COPD, HLD, HTN, recently d/c'd from our facility on 08/06/2024 for acute hypoxic respiratory failure/new onset CHF, new onset a flutter, presenting to the ED c/o dizziness x days (since admission - unchanged) & not feeling well. Dizziness described as head feeling heavy & cannot focus PE: in wheelchair, nontoxic appearing, VSS Plan: EKG, labs, UA, SARs, orthos Medical Decision Making Medical Decision Making MDM Narrative: 73-year-old male with recent a flutter, decompensated heart failure diagnosis. Clinically looks euvolemic his symptoms are chronic since the hospitalization and quite mild mostly lightheadedness. No chest pain or other anginal symptoms to suggest ACS though this was considered. His troponin level in Cardiology documents from the recent admission reveal his troponin was in the 50s to 160s range although I do not see this in the lab diagnostic section that was documented then. Today he has 160s to 180s stable. Given there was no symptoms to suggest acute coronary syndrome I doubt this this is probably type 2 OK or residual troponin leak from decompensated heart failure recently. Patient looks well and I have reassured him. Lab work is generally reassuring otherwise and ECG has no acute ischemic changes nor dynamic changes on repeat Chest x-ray clear lungs clear he is in constant a flutter which may be symptomatic perhaps he has slightly dehydrated from the recent administration of Lasix which may also causes he has been eating and drinking well and I will have him continue his normal regular diet. Close follow up with PCP you may get symptomatic relief with cardioversion which is planned. Admission/Observation Consideration of admission/observation: Escalation of care including admission/observation considered Lab Data MDM Lab Attestation statement: I reviewed the patient's lab results. 08/08/24 14:56 08/08/24 14:56 Labs: Lab Results 08/08/24 08/08/24 Range/Units 14:56 16:05 WBC 11.1 H (4.8-10.8) X10*3/uL RBC 4.74 D (4.60-5.80) X10*6/uL Hgb 15.5 D (14.0-18.0) g/dl Hct 45.3 (42.0-52.0) % MCV 95.6 (80.0-98.0) fL MCH 32.7 (27.0-33.0) pg MCHC 34.2 (31.0-36.0) g/dl RDW 12.2 (11.0-16.0) % Plt Count 170 (160-400) X10*3/uL MPV 9.9 (9.4-12.4) fL Immature Gran % (Auto) 0.4 (0.0-0.4) % Neut % (Auto) 73.2 H (45-73) % Lymph % (Auto) 16.1 L (20-40) % [place] % (Auto) 7.1 (2-11) % Eos % (Auto) 2.6 (0-4) % Baso % (Auto) 0.6 (0-2) % Lymph # (Auto) 1.8 (1.2-4.9) X10*3/uL [place] # (Auto) 0.8 (0.1-1.2) X10*3/uL Eos # (Auto) 0.3 (0.0-0.4) X10*3/uL Baso # (Auto) 0.1 (0.0-0.2) X10*3/uL Abs Immat Gran (auto) 0.05 H (0.00-0.03) X10*3/uL Absolute Neuts (auto) 8.2 (2.0-8.3) x10*3/uL Absolute Nucleated RBC 0.000 (0.0-0.012) X10*3/uL Nucleated RBC % (auto) 0.0 (0.0-0.2) /100WBC Sodium 141 (135-145) mmol/L Potassium 4.0 (3.3-5.1) mmol/L Chloride 101 (96-108) mmol/L Carbon Dioxide 29 (22-29) mmol/L Anion Gap 15 (12-20) BUN 27 H (9-16) mg/dL Creatinine 0.92 (0.5-1.4) mg/dL Estim Creat Clear Calc 76.5 Estimated GFR > 60 Random Glucose 106 (60-115) mg/dL Calcium 10.0 D (8.4-10.2) mg/dL Magnesium 2.4 (1.6-2.6) mg/dL Total Bilirubin 0.6 (0.0-1.0) mg/dL Direct Bilirubin 0.2 (0.0-0.5) mg/dL AST 38 H (5-37) U/L ALT 50 H (0-40) U/L Alkaline Phosphatase 74 (39-117) U/L Troponin I High Sens 168.6 H* 182.9 H* (<3.5-35.0) ng/L B-Natriuretic Peptide 116 H (<100) pg/mL Total Protein 7.8 (6.5-8.0) g/dL Albumin 4.5 (3.5-5.0) g/dL Influenza Type A (PCR) NEGATIVE (Negative) Influenza Type B (PCR) NEGATIVE (Negative) RSV RNA Qual (PCR) NEGATIVE (Negative) SARS-CoV-2 RNA (RT-PCR) NEGATIVE (Negative) Independent Interpretation I performed an independent interpretation of an: EKG ( rate controlled atrial flutter. Q-waves inferiorly. , these is consistent with previous on August 03 including Q-waves and morphology) and Plain X-Ray ( No pulmonary edema or effusions) Discharge Plan Discharge Clinical Impression: Light-headedness, Atrial fibrillation and flutter Patient Disposition: Home, Self-Care Instructions: A-fib (Atrial Fibrillation) (ED) Additional Instructions: DISCHARGE DIAGNOSES: atrial flutter, symptomatic and chronic HISTORY OF PRESENTATION: lightheadedness since recent discharge from the hospital for atrial flutter and decompensated heart failure EMERGENCY DEPARTMENT COURSE,TESTS, TREATMENTS: While in the ED today you had chest x-ray EKG lab work all of which does not reveal any acute cardiologic issue. We do not feel your having heart attack or buildup of fluid in the body as you had last time. You have persistent atrial flutter which may be symptomatic DISCHARGE MEDICATIONS: [We have made no changes to your regular medication regimen] FOLLOW-UP: Call your primary or general physician soon as possible to discuss your symptoms, your ED visit and to discuss follow up plans call your primary doctor and the rehabilitation aide to ensure close follow up as you may need cardioversion. Return for any severe worsening symptoms as we discussed INSTRUCTIONS & RETURN PRECAUTIONS: If any symptoms change first call your primary physician, if it is after-hours your primary doctors office should have a provider loss prevention coordinator you can speak with. If the symptoms are severe or very concerning to you then call 911 or return to the ED. [[id number]] Umang Wright MD Emergency Physician [facility] Prescriptions: No Action atorvastatin 80 mg tablet 80 mg PO BEDTIME cyanocobalamin (vitamin B-12) 1,000 mcg tablet 2,000 mcg PO DAILY allopurinol 100 mg tablet 100 mg PO DAILY tamsulosin 0.4 mg capsule 0.4 mg PO BEDTIME amlodipine 10 mg tablet 10 mg PO DAILY diclofenac sodium 75 mg tablet,delayed release (DR/EC) 75 mg PO BID lisinopril 40 mg tablet 40 mg PO DAILY fluticasone propionate 50 mcg/actuation spray,suspension 2 spray intranasal DAILY loratadine 10 mg tablet 10 mg PO DAILY fluticasone propion-salmeterol 230-21 mcg/actuation HFA aerosol inhaler 2 puff inhalation BID albuterol sulfate 90 mcg/actuation Hfa Aerosol Inhaler 2 puff INHALATION Q6H PRN (Reason: Wheezing) Jardiance 10 mg Tablet 10 mg PO DAILY Qty: 180 0RF spironolactone 25 mg Tablet 25 mg PO DAILY Qty: 90 0RF Protocol: Hold for SBP< HOLD for SBP < : 90 Eliquis 5 mg Tablet 5 mg PO BID Qty: 180 0RF furosemide [Lasix] 40 mg tablet 40 mg PO QAM Qty: 180 0RF Interventions: ED Discharge Assessment Last Done: 08/08/24 17:58 Discharge Date/Time: 08/08/24 17:58 Print Language: Sinhala
--- NOTE | 2024-08-08 14:20 | ECG_ITS ---
Test Reason : dizziness, SOB Blood Pressure : */* mmHG Vent. Rate : 61 BPM Atrial Rate : * BPM P-R Int : * ms QRS Dur : 94 ms QT Int : 418 ms P-R-T Axes : * -37 45 degrees QTcB Int : 420 ms Atrial flutter Left axis deviation Inferior infarct (cited on or before 03-Aug-2024) Abnormal ECG When compared with ECG of 03-Aug-2024 09:02, No significant changes seen Referred By: Maureen Gandara Electronically Signed By: HANNAH AMBROSE
[2024-08-08 14:21] VITALS: BP 136/73; PULSE 70; RESP 18; TEMP 37.1; O2SAT 93; BMI 32.3
[2024-08-08 15:04] LABS: MANUAL DIFF FLAG NO
[2024-08-08 15:11] LABS: Basophils Absolute Auto 0.1 X10*3/uL (0.0-0.2); Basophils Percent Auto 0.6 % (0-2); Eosinophils Absolute Auto 0.3 X10*3/uL (0.0-0.4); Eosinophils Percent Auto 2.6 % (0-4); Hematocrit 45.3 % (42.0-52.0); Hemoglobin 15.5 g/dl (14.0-18.0); Imm Gran Abs Auto 0.05 X10*3/uL (0.00-0.03); Imm Gran Pct Auto 0.4 % (0.0-0.4); Lymphocytes Absolute Auto 1.8 X10*3/uL (1.2-4.9); Lymphocytes Percent Auto 16.1 % (20-40); Mean Corpuscular HGB Conc 34.2 g/dl (31.0-36.0); Mean Corpuscular Hemoglobin 32.7 pg (27.0-33.0); Mean Corpuscular Volume 95.6 fL (80.0-98.0); Mean Platelet Volume 9.9 fL (9.4-12.4); Monocytes Absolute Auto 0.8 X10*3/uL (0.1-1.2); Monocytes Percent Auto 7.1 % (2-11); Neutrophils Absolute Auto 8.2 x10*3/uL (2.0-8.3); Neutrophils Percent Auto 73.2 % (45-73); Platelet Count 170 X10*3/uL (160-400); Red Blood Count 4.74 X10*6/uL (4.60-5.80); Red Cell Distribution Width 12.2 % (11.0-16.0); White Blood Count 11.1 X10*3/uL (4.8-10.8)
[2024-08-08 15:21] LABS: Anion Gap 15 (12-20)
[2024-08-08 15:26] LABS: Alanine Aminotransferase 50 U/L (0-40); Albumin Level 4.5 g/dL (3.5-5.0); Aspartate Amino Transferase 38 U/L (5-37); Bilirubin Direct 0.2 mg/dL (0.0-0.5); Bilirubin Total 0.6 mg/dL (0.0-1.0); Blood Urea Nitrogen 27 mg/dL (9-16); Carbon Dioxide 29 mmol/L (22-29); Chloride 101 mmol/L (96-108); Creatinine Clr Calc Pharmacy 76.5; Estimated Glomerular Filt Rate > 60; Glucose Random 106 mg/dL (60-115); Magnesium 2.4 mg/dL (1.6-2.6); Sodium 141 mmol/L (135-145); Total Protein 7.8 g/dL (6.5-8.0)
[2024-08-08 15:30] LABS: B Type Natriuretic Peptide 116 pg/mL (<100)
[2024-08-08 15:34] LABS: Troponin-I High Sensitivity 168.6 ng/L (<3.5-35.0)
[2024-08-08 15:45] LABS: Influenza A PCR NEGATIVE (Negative); Influenza B PCR NEGATIVE (Negative); Resp Syncy Virus RNA Qual PCR NEGATIVE (Negative); SARS COV2 PCR INHOUSE NEGATIVE (Negative)
[2024-08-08 15:49] VITALS: BP 147/63; PULSE 55
[2024-08-08 15:52] VITALS: BP 140/65; PULSE 62
[2024-08-08 15:53] VITALS: BP 124/59; PULSE 72
[2024-08-08 16:19] LABS: Alkaline Phosphatase 74 U/L (39-117)
--- OUTSIDE RECORDS SUMMARY | 2024-08-08 16:19 | XMS_ITS | Encounter Summary ---
Author Organization [facility] Address [address] [place] [address] Care Team Providers Care Ripsawyer Name Role Phone Curtis Muller MD Primary Care Provider [phone] Encounter Details Date Type Department Care Team (Late st Contact Info) Description 07/26/2024 Telephone Pulmonol - [place] [address] [place] [phone] Priscilla Dumont, TRESA [address] [place] [address] Social History Tobacco Use Types Packs/Day Years [...] be seeing a different pulmo provider at [facility] . Hewill be seeing Dr. Schmid documented in this encounter Plan of Treatment Upcoming Encounters Date Type Department Care Team (Late st Contact Info) Description 08/20/2024 1:30 PM EDT Evaluation Outpatient Rehabilitation - [address] [place], [place] [phone] Srinath Jose, AMADA 08/21/2024 1:00 PM EDT Procedure visit Orthopedic Surgery [facility] [address] [phone] Cathy Sin MD [address] [address] 08/28/2024 1:30 PM EDT Procedure visit Orthopedic Surgery [facility] [address] [phone] Cathy Sin MD [address] [place] [address] 08/29/2024 10:30 AM EDT Office Visit Adult Medicine [address] [phone] Curtis Muller MD [address] [place] [address] 10/23/2024 4:30 PM EDT Office Visit Adult [address] [phone] Curtis Muller MD [address] [place] [address] documented as of this encounter Visit Diagnoses Not on filedocumented in this encounter Additional Health Concerns Assessment Noted Time PHQ-9 Depression Total Score: 13 025 6:38 PM EST documented as of this encounter Care Teams Ripsawyer Relationship Specialty Start Date End Date Curtis Muller MD [address] [place] [address] PCP - General Internal Medicine 08/14/14 documented as of this encounter
--- OUTSIDE RECORDS SUMMARY | 2024-08-08 16:19 | XMS_ITS | Clinical Summary ---
Author Organization 175 [facility] Address 175 [place] [address] Phone Care Team Providers Care Greige Goods Examiner Name Role Phone Curtis Muller MD Primary Care Provider [phone] Allergies No known active allergies Medications albuterol HFA (PROAIR HFA ; PROVENTIL HFA ; VENTOLIN HFA) 90 mcg/actuation inhaler Inhale 2 puffs by mouth. 4 Active chlorhexidine (PERIDEX) 0.12 % solution 1 Active cyclobenzaprine (FLEXERIL) 5 mg tablet Take 1 tablet (5 mg total) by mouth. 3 Active diclofenac (VOLTAREN) 1 % topical gel Apply 1 applicator topically. 3 Active fluticasone propion-salmeter oL (Advair HFA) 115-21 mcg/actuation inhaler TAKE 2 PUFFS TWICE PER DAY. RINSE MOUTH AFTER EACH USE TO AVOID FUNGAL INFECTION 3 Active hydrocortisone (ANUSOL-HC) 2.5 % rectal cream Apply 1 Dose topically. 3 Active tamsulosin (FLOMAX) 0.4 mg 24 hr capsule TAKE 1 CAPSULE BY MOUTH DAILY TAKE 30 MINUTES AFTER SAME MEAL EVERY DAY 3 Active acetaminophen (TYLENOL) 500 mg tablet Take 1 tablet (500 mg total) by mouth. 3 Active miscellaneous medical supply misc Inhale. 3 Active Advair HFA 230-21 mcg/actuation inhalerIndicatio ns:Obstructive sleep apnea (adult) (pediatric),Card iac murmur, unspecified INHALE 2 PUFFS INTO THE LUNGS 2 TIMES DAILY. THIS MEDICATION HAS INHALER STEROID: RINSE MOUTH WITH WATER AND EXPECTORATE AFTER EACH DOSE TO PREVENT ORAL/ESOPHAGEAL CANDIDIASIS OR FUNGAL INFECTION. 12 each 2 4 Active predniSONE (DELTASONE) 20 mg tablet Take 60 mg PO daily for 3 days, then take 40 mg PO daily for 3 days, then 20 mg PO daily for 3 days, then stop 18 tablet 5 Active fluticasone propionate (FLONASE) 50 mcg/actuation nasal sprayIndications :Obstructive sleep apnea (adult) (pediatric),Othe r forms of dyspnea SPRAY 2 SPRAYS BY NASAL ROUTE DAILY. 48 mL 1 5 Active diclofenac (VOLTAREN) 75 mg EC tablet TAKE 1 TABLET BY MOUTH TWICE A DAY 180 tablet 1 5 Active atorvastatin (LIPITOR) 80 mg tablet TAKE 1 TABLET BY MOUTH EVERYDAY AT BEDTIME 90 tablet 1 5 Active lisinopril (PRINIVIL,ZESTRI L) 40 mg tabletIndication s:Essential (primary) hypertension TAKE 1 TABLET BY MOUTH EVERY DAY 90 tablet 1 5 Active chlorthalidone (HYGROTON) 25 mg tabletIndication s:Essential (primary) hypertension TAKE 1 TABLET BY MOUTH EVERY DAY 90 tablet 1 5 Active allopurinoL (ZYLOPRIM) 100 mg tabletIndication s:Idiopathic chronic gout, unspecified site, without tophus (tophi) TAKE 1 TABLET BY MOUTH EVERY DAY 90 tablet 1 5 Active cyanocobalamin (VITAMIN B-12) 1,000 mcg tablet TAKE 2 TABLETS BY MOUTH EVERY DAY 180 tablet 1 5 Active amLODIPine (NORVASC) 10 mg tabletIndication s:Essential (primary) hypertension Take 1 tablet (10 mg total) by mouth 1 (one) time each day. 90 tablet 5 Active loratadine (Claritin) 10 mg tabletIndication s:Non-seasonal allergic rhinitis, unspecified trigger Take 1 tablet (10 mg total) by mouth 1 (one) time each day. 30 each 2 5 07/24/20 25 Active Active Problems Problem Noted Date Diagnosed Date [...] 03/15/2016. 04/01/2016: CPAP pressure lowered to 6-11. [facility] polysomnogram 01/06/2021. Weight 190; BMI 30. [...] Encounters Date Type Department Care Team Description 08/07/2024 Telephone Adult Medicine [address] [phone] Curtis Muller MD Hospital Follow-up 07/26/2024 Telephone Pulmonolgy [facility] 175 [facility] 200 [place] [phone] Priscilla Dumont NP [facility] [address] [place] [phone] Priscilla Dumont NP Med Refill 07/19/2024 1:30 PM EDT Consult Orthopedic Surgery [facility] 160 175 [facility] 160 [place] [phone] Cathy Sin MD Greater trochanteric pain syndrome of both lower extremities (Primary Dx); Primary osteoarthritis of both hips 05/31/2024 Telephone Adult Medicine [address] [phone] Curtis Muller MD Medication Visit; New Med [...] 08/20/2024 1:30 PM EDT Evaluation Outpatient Rehabilitation [address] [phone] Srinath Jose, AMADA 08/21/2024 1:00 PM EDT Procedure visit Orthopedic Surgery [facility] [address] [phone] Cathy Sin MD [address] [address] 08/28/2024 1:30 PM EDT Procedure visit Orthopedic [facility] [address] [phone] Cathy Sin MD [address] [address] 08/29/2024 10:30 AM EDT Office Visit Adult Medicine [address] [phone] Curtis Muller MD [address] [place] [address] 10/23/2024 4:30 PM EDT Office Visit Adult [address] [phone] Curtis Muller MD [address] [place] [address] Health Maintenance Due Date Last Done Comments [...] mg/dL LAB CHEMISTRY METHOD 04/12/2024 6:59 PM [facility] Triglycerides 147 0 - 150 mg/dL LAB CHEMISTRY METHOD 04/12/2024 6:59 PM [facility] HDL 42 >=40 mg/dL LAB CHEMISTRY METHOD 04/12/2024 6:59 PM [facility] LDL Calculated 101(H) 0 - 100 mg/dL LAB CHEMISTRY METHOD 04/12/2024 6:59 PM [facility] VLDL Cholesterol Mino 29.4 mg/dL LAB CHEMISTRY METHOD 04/12/2024 6:59 PM [facility] Non HDL Chol. (LDL+VLDL) 130 <145 mg/dL LAB CHEMISTRY METHOD 04/12/2024 6:59 PM [facility] Chol/HDL Ratio 4.1 0.0 - 4.4 LAB CHEMISTRY METHOD 04/12/2024 6:59 PM [facility] Blood Venous blood specimen / Unknown Venipuncture / Unknown 04/12/2024 4:35 PM EST 04/12/2024 4:35 PM EST us Curtis Muller MD LAB BLOOD ORDERABLES Final Resu lt [facility] [address] [place] [address], * (ABNORMAL) Comprehensive metabolic panel (04/12/2024 4:35 PM EST) Pathologist [facility] Sodium 136 133 - 145 mmol/L LAB CHEMISTRY METHOD 04/12/2024 6:59 PM [facility] Potassium 4.2 3.5 - 5.5 mmol/L LAB CHEMISTRY METHOD 04/12/2024 6:59 PM [facility] Chloride 98 96 - 110 mmol/L LAB CHEMISTRY METHOD 04/12/2024 6:59 PM [facility] CO2 31 21 - 32 mmol/L LAB CHEMISTRY METHOD 04/12/2024 6:59 PM [facility] Anion Gap 7 3 - 11 LAB CHEMISTRY METHOD 04/12/2024 6:59 PM [facility] Glucose 118(H) 70 - 100 mg/dL LAB CHEMISTRY METHOD 04/12/2024 6:59 PM [facility] BUN 23 5 - 25 mg/dL LAB CHEMISTRY METHOD 04/12/2024 6:59 PM [facility] Creatinine 1.09 0.70 - 1.30 mg/dL LAB CHEMISTRY METHOD 04/12/2024 6:59 PM [facility] eGFR 72 >=60 mL/min/1. 73m2 LAB CHEMISTRY METHOD 04/12/2024 6:59 PM [facility] Comment:Calculation based on the??Chronic Kidney Disease Epidemiology Collaboration (CKD-EPI) equation refit??without adjustment for race. BUN/Creatinine Ratio 21.1 LAB CHEMISTRY METHOD 04/12/2024 6:59 PM [facility] Calcium 9.5 8.5 - 10.5 mg/dL LAB CHEMISTRY METHOD 04/12/2024 6:59 PM [facility] AST (SGOT) 50(H) 10 - 42 unit/L LAB CHEMISTRY METHOD 04/12/2024 6:59 PM [facility] ALT (SGPT) 97(H) 10 - 60 unit/L LAB CHEMISTRY METHOD 04/12/2024 6:59 PM [facility] Alkaline Phosphatase 71 42 - 121 unit/L LAB CHEMISTRY METHOD 04/12/2024 6:59 PM [facility] Total Protein 7.9 6.0 - 8.0 g/dL LAB CHEMISTRY METHOD 04/12/2024 6:59 PM [facility] Albumin 4.3 3.2 - 5.0 g/dL LAB CHEMISTRY METHOD 04/12/2024 6:59 PM EST [facility] Total Bilirubin 0.5 0.0 - 1.4 mg/dL LAB CHEMISTRY METHOD 04/12/2024 6:59 PM EST [facility] Blood Venous blood specimen / Unknown Venipuncture / Unknown 04/12/2024 4:35 PM EST 04/12/2024 4:35 PM EST us Curtis Muller MD LAB BLOOD ORDERABLES Final Resu lt [facility] [address] [place] [address], from Last 3 Months or Most Recently Relevant to Health Maintenance Insurance [employer] Care Teams Greige Goods Examiner Relationship Specialty Start Date End Date Curtis Muller MD [address] [place] [address] PCP - General Internal Medicine 08/14/14
--- OUTSIDE RECORDS SUMMARY | 2024-08-08 16:19 | XMS_ITS | Encounter Summary ---
Author Organization [facility] Address [address] [place] [address] Care Team Providers Care Shock Absorption Floor Layer Name Role Phone Curtis Muller MD Primary Care Provider [phone] Reason for Visit * Reason Onset Date Comments Hospital Follow-up 08/07/2024 Encounter Details Date Type Department Care Team ([facility] st Contact Info) Description 08/07/2024 Telephone Adult Medicine [address] [phone] Curtis Muller MD [address] [place] [phone] Hospital Follow-up Social History Tobacco Use Types Packs/Day Years [...] as of this encounter Progress Notes * Rossi Agarwal RN - 08/08/2024 10:33 AM EDT Called pt via [facility] and interpretor # [id number]. Called pt and informed him of his hospital follow up appointment on 08/29/24 at 10:[address] Muller and he is in agreement with this plan. * David Lewis - 08/08/2024 10:15 AM EDT Patient calling back looking to speak to nurse * Rossi Agarwal RN - 08/08/2024 10:06 AM EDT Called pt via [facility] and interpretor # [id number]. An appointment was made for him to be seen in the office on 08/29/24 at 10:[address] Muller. I left a message for the pt to call the office at . Please advise him of the hospital follow up appointment when he calls back. Thank you. * Lynne Perkins - 08/07/2024 12:36 PM EDT Hospital/ER follow up appointment needed Hospital patient was treated at: [facility] Was this only an ER visit or was the patient admitted to the hospital? Admitted to the hospital/kept overnight Date of visit if ER visit only: 08/03/2024 If patient was admitted what was the date of discharge? 08/06/2024 Reason/diagnosis for visit or stay: Arrhythmia, heart failure, hypoxia, AFIB When was the patient told to follow up? 1 week Was visit or stay related to an injury? If yes, what was the date of injury (DOI)? No If yes, was the injury due to: Not 3rd libertarian related documented in this encounter Plan of Treatment Upcoming Encounters Date Type Department Care Team (Late st Contact Info) Description 08/20/2024 1:30 PM EDT Evaluation Outpatient Rehabilitation - [address] [phone] Srinath Jose, PT 08/21/2024 1:00 PM EDT Procedure visit Orthopedic Surgery - [place] [address] [phone] Cathy Sin MD [address] [address] 08/28/2024 1:30 PM EDT Procedure visit Orthopedic Surgery - [place] [address] [phone] Cathy Sin MD [address] [address] 08/29/2024 10:30 AM EDT Office Visit [address] [phone] Curtis Muller MD [address] [place] [address] 10/23/2024 4:30 PM EDT Office Visit [address] [phone] Curtis Muller MD [address] [place] [address] documented as of this encounter Visit Diagnoses Not on filedocumented in this encounter Additional Health Concerns Assessment Noted Time PHQ-9 Depression Total Score: 13 025 6:38 PM EST documented as of this encounter Care Teams Shock Absorption Floor Layer Relationship Specialty Start Date End Date Curtis Muller MD [address] [place] [address] PCP - General Internal Medicine 08/14/14 documented as of this encounter
[2024-08-08 16:48] LABS: Troponin-I High Sensitivity 182.9 ng/L (<3.5-35.0)
[2024-08-08 17:58] VITALS: BP 124/59; PULSE 72; RESP 18; TEMP 37.1; O2SAT 96
== END 2024-08-08 17:58 | disposition home or self-care (01) ==
PROVIDERS: Physician Assistant; Emergency Provider Emergency Medicine; PCP Internal Medicine
DX: R42 Dizziness and giddiness (principal); I48.91 Unspecified atrial fibrillation; I48.92 Unspecified atrial flutter; R06.02 Shortness of breath; Z79.899 Other long term (current) drug therapy; Z03.818 Encounter for observation for suspected exposure to other biological agents ruled out
CPT/HCPCS: 0241U; 36415; 71045; 80048; 80076; 83735; 83880; 84484; 85025; 93005; 99283; 99285

== ENCOUNTER → 2024-08-08 14:20 | Outpatient (BNV) | payer OTHER, SELFPAY | PROVIDERS: Emergency Provider Emergency Medicine; PCP Internal Medicine; Visit Provider Internal Medicine | DX: I48.92 Unspecified atrial flutter (principal) | CPT/HCPCS: 93010 ==

== ENCOUNTER → 2024-08-08 14:22 | Outpatient (BNV) | payer OTHER, SELFPAY | PROVIDERS: Emergency Provider Emergency Medicine; PCP Internal Medicine; Visit Provider Radiology Diagnostic Radiology | DX: R91.8 Other nonspecific abnormal finding of lung field (principal); R42 Dizziness and giddiness | CPT/HCPCS: 71045 ==

== ENCOUNTER 2024-08-10 08:17 | Outpatient (REF) | payer OTHER, SELFPAY ==
--- OUTSIDE RECORDS SUMMARY | 2024-08-10 08:24 | XMS_ITS | Clinical Summary ---
Author Organization 175 [facility] Address 175 [place] [address] Phone Care Team Providers Care Loan Assistant Name Role Phone Cutris Muller MD Primary Care Provider [phone] Allergies No known active allergies Medications albuterol [...] 03/15/2016. 04/01/2016: CPAP pressure lowered to 6-11. [facility] polysomnogram 01/06/2021. Weight 190; BMI 30. Effectiveness [...] Care Team Description 08/07/2024 Telephone Adult Medicine [address] [phone] Curtis Muller MD Hospital Follow-up 07/26/2024 Telephone Pulmonolgy [facility] 175 [facility] 200 [place] [phone] Priscilla Dumont NP [facility] 200 [place] [phone] Priscilla Dumont NP Med Refill 07/19/2024 1:30 PM EDT Consult Orthopedic Surgery [facility] 160 175 [facility] 160 [place] [phone] Cathy Sin MD Greater trochanteric pain syndrome of both lower extremities (Primary Dx); Primary osteoarthritis of both hips 05/31/2024 Telephone Adult Medicine [address] [phone] Curtis Muller MD Medication Visit; New Med [...] 08/20/2024 1:30 PM EDT Evaluation Outpatient Rehabilitation [address] [phone] Srinath Jose, PT 08/21/2024 1:00 PM EDT Procedure visit Orthopedic Surgery [facility] [address] [phone] Cathy Sin MD [address] [place] [address] [address] 08/28/2024 1:30 PM EDT Procedure visit Orthopedic [facility] [address] [phone] Cathy Sin MD [address] [place] [address] [address] 08/29/2024 10:30 AM EDT Office Visit Adult Medicine [address] [phone] Curtis Muller MD [address] [place] [address] 10/23/2024 4:30 PM EDT Office Visit Adult [address] [phone] Curtis Muller MD [address] [place] [address] Health Maintenance Due Date Last Done Comments Zoster Vaccines (1 of 2) 08/11/2001 RSV Immunization Adult Patients (1 - Risk 60-74 years 1-dose series) 2011 Medicare Annual Wellness Visit 03/13/2022 Social Influencers of Health Screening 03/13/2022 Falls Risk Assessment 02/19/2023 02/19/2022 COVID-19 Vaccine ( season) 2023 07/16/2021 Depression Screening 04/11/2025 04/11/2024, 10/07/19 23 Hypertension/CHF/CAD [...] LAB CHEMISTRY METHOD 04/12/2024 6:59 PM EST [facility] Triglycerides 147 0 - 150 mg/dL LAB CHEMISTRY METHOD 04/12/2024 6:59 PM EST [facility] HDL 42 >=40 mg/dL LAB CHEMISTRY METHOD 04/12/2024 6:59 PM EST [facility] LDL Calculated 101(H) 0 - 100 mg/dL LAB CHEMISTRY METHOD 04/12/2024 6:59 PM [facility] VLDL Cholesterol Mino 29.4 mg/dL LAB CHEMISTRY METHOD 04/12/2024 6:59 PM [facility] Non HDL Chol. (LDL+VLDL) 130 <145 mg/dL LAB CHEMISTRY METHOD 04/12/2024 6:59 PM [facility] Chol/HDL Ratio 4.1 0.0 - 4.4 LAB CHEMISTRY METHOD 04/12/2024 6:59 PM [facility] Blood Venous blood specimen / Unknown Venipuncture / Unknown 04/12/2024 4:35 PM EST 04/12/2024 4:35 PM EST us Curtis Muller MD LAB BLOOD ORDERABLES Final Resu lt [facility] [address] [place] [address], * (ABNORMAL) Comprehensive metabolic panel (04/12/2024 4:35 PM EST) Pathologist [facility] Sodium 136 133 - 145 mmol/L LAB CHEMISTRY METHOD 04/12/2024 6:59 PM [facility] Potassium 4.2 3.5 - 5.5 mmol/L LAB CHEMISTRY METHOD 04/12/2024 6:59 PM EST [facility] Chloride 98 96 - 110 mmol/L LAB CHEMISTRY METHOD 04/12/2024 6:59 PM [facility] CO2 31 21 - 32 mmol/L LAB CHEMISTRY METHOD 04/12/2024 6:59 PM [facility] Anion Gap 7 3 - 11 LAB CHEMISTRY METHOD 04/12/2024 6:59 PM [facility] Glucose 118(H) 70 - 100 mg/dL LAB CHEMISTRY METHOD 04/12/2024 6:59 PM [facility] BUN 23 5 - 25 mg/dL LAB CHEMISTRY METHOD 04/12/2024 6:59 PM [facility] Creatinine 1.09 0.70 - 1.30 mg/dL LAB CHEMISTRY METHOD 04/12/2024 6:59 PM [facility] eGFR 72 >=60 mL/min/1. 73m2 LAB CHEMISTRY METHOD 04/12/2024 6:59 PM [facility] Comment:Calculation based on the??Chronic Kidney Disease Epidemiology Collaboration (CKD-EPI) equation refit??without adjustment for race. BUN/Creatinine Ratio 21.1 LAB CHEMISTRY METHOD 04/12/2024 6:59 PM [facility] Calcium 9.5 8.5 - 10.5 mg/dL LAB CHEMISTRY METHOD 04/12/2024 6:59 PM [facility] AST (SGOT) 50(H) 10 - 42 unit/L LAB CHEMISTRY METHOD 04/12/2024 6:59 PM [facility] ALT (SGPT) 97(H) 10 - 60 unit/L LAB CHEMISTRY METHOD 04/12/2024 6:59 PM [facility] Alkaline Phosphatase 71 42 - 121 unit/L LAB CHEMISTRY METHOD 04/12/2024 6:59 PM [facility] Total Protein 7.9 6.0 - 8.0 g/dL LAB CHEMISTRY METHOD 04/12/2024 6:59 PM [facility] Albumin 4.3 3.2 - 5.0 g/dL LAB CHEMISTRY METHOD 04/12/2024 6:59 PM EST [facility] Total Bilirubin 0.5 0.0 - 1.4 mg/dL LAB CHEMISTRY METHOD 04/12/2024 6:59 PM EST [facility] Blood Venous blood specimen / Unknown Venipuncture / Unknown 04/12/2024 4:35 PM EST 04/12/2024 4:35 PM EST us Curtis Muller MD LAB BLOOD ORDERABLES Final Resu lt [facility] [address] [place] [address], from Last 3 Months or Most Recently Relevant to Health Maintenance Insurance [employer] Care Teams Loan Assistant Relationship Specialty Start Date End Date Curtis Muller MD [address] [place] [address] PCP - General Internal Medicine 08/14/14
--- OUTSIDE RECORDS SUMMARY | 2024-08-10 08:24 | XMS_ITS | Encounter Summary ---
Author Organization [facility] Address [address] [place] [address] Care Team Providers Care Diesel Scoop Operator Name Role Phone Curtis Muller MD Primary Care Provider [phone] Encounter Details Date Type Department Care Team (Late st Contact Info) Description 07/26/2024 Telephone Pulmonol - [place] [address] [place] [phone] Priscilla Dumont, TRESA [address] [place] [address] [place] [address] Social History Tobacco Use Types Packs/Day Years [...] be seeing a different pulmo provider at [facility] . Hewill be seeing Dr. Schmid documented in this encounter Plan of Treatment Upcoming Encounters Date Type Department Care Team (Late st Contact Info) Description 08/20/2024 1:30 PM EDT Evaluation Outpatient Rehabilitation - [address] [place], [place] [phone] Srinath Jose, AMADA 08/21/2024 1:00 PM EDT Procedure visit Orthopedic Surgery [facility] [address] [phone] Cathy Sin MD [address] [address] 08/28/2024 1:30 PM EDT Procedure visit Orthopedic Surgery [facility] [address] [phone] Cathy Sin MD [address] [place] [address] 08/29/2024 10:30 AM EDT Office Visit Adult Medicine [address] [phone] Curtis Muller MD [address] [place] [address] 10/23/2024 4:30 PM EDT Office Visit Adult [address] [phone] Curtis Muller MD [address] [place] [address] documented as of this encounter Visit Diagnoses Not on filedocumented in this encounter Additional Health Concerns Assessment Noted Time PHQ-9 Depression Total Score: 13 025 6:38 PM EST documented as of this encounter Care Teams Diesel Scoop Operator Relationship Specialty Start Date End Date Curtis Muller MD [address] [place] [address] PCP - General Internal Medicine 08/14/14 documented as of this encounter
--- OUTSIDE RECORDS SUMMARY | 2024-08-10 08:24 | XMS_ITS | Encounter Summary ---
Author Organization [facility] Address [address] [place] [address] Care Team Providers Care Bench Assembly Inspector Name Role Phone Curtis Muller MD Primary Care Provider [phone] Reason for Visit * Reason Onset Date Comments Hospital Follow-up 08/07/2024 Encounter Details Date Type Department Care Team ([facility] st Contact Info) Description 08/07/2024 Telephone Adult Medicine [address] [phone] Curtis Muller MD [address] [place] [phone] Hospital Follow-up Social History Tobacco Use Types [...] 08/08/2024 10:33 AM EDT Called pt via [facility] and interpretor # [id number]. Called pt and informed him of his hospital follow up appointment on 08/29/24 at 10:[address] Muller and he is in agreement with this plan. * David Lewis - 08/08/2024 10:15 AM EDT Patient calling back looking to speak to nurse * Rossi Agarwal RN - 08/08/2024 10:06 AM EDT Called pt via [facility] and interpretor # [id number]. An appointment was made for him to [...] appointment needed Hospital patient was treated at: [facility] Was this only an ER visit or [...] was the injury due to: Not 3rd democrat related documented in this encounter Plan of Treatment Upcoming Encounters Date Type Department Care Team (Late st Contact Info) Description 08/20/2024 1:30 PM EDT Evaluation Outpatient Rehabilitation - [address] [phone] Srinath Jose, PT 08/21/2024 1:00 PM EDT Procedure visit Orthopedic Surgery - [place] [address] [phone] Cathy Sin MD [address] [phone] 08/28/2024 1:30 PM EDT Procedure visit Orthopedic Surgery - [place] [address] [phone] Cathy Sin MD [address] [address] 08/29/2024 10:30 AM EDT Office Visit [address] [phone] Curtis Muller MD [address] [place] [address] 10/23/2024 4:30 PM EDT Office Visit [address] [phone] Curtis Muller MD [address] [place] [phone] documented as of this encounter Visit Diagnoses Not on filedocumented in this encounter Additional Health Concerns Assessment Noted Time PHQ-9 Depression Total Score: 13 025 6:38 PM EST documented as of this encounter Care Teams Bench Assembly Inspector Relationship Specialty Start Date End Date Curtis Muller MD [address] [place] [phone] PCP - General Internal Medicine 08/14/14 documented as of this encounter
[2024-08-10 09:25] LABS: Anion Gap 13 (12-20); Blood Urea Nitrogen 17 mg/dL (9-16); Calcium 9.5 mg/dL (8.4-10.2); Carbon Dioxide 29 mmol/L (22-29); Chloride 103 mmol/L (96-108); Estimated Glomerular Filt Rate > 60; Glucose Fasting 117 mg/dL (60-99); Potassium 4.2 mmol/L (3.3-5.1); Sodium 141 mmol/L (135-145)
== END 2024-08-10 08:18 | disposition home or self-care (01) ==
LOC: HO.LAB 08:17
PROVIDERS: PCP Internal Medicine; Visit Provider Internal Medicine
DX: I10 Essential (primary) hypertension (principal); I50.9 Heart failure, unspecified
CPT/HCPCS: 36415; 80048